=== PATIENT | male | born 1975 | race Caucasian/White ===

== ENCOUNTER 2020-03-18 13:42 | Outpatient (REF) | payer MEDICARE, MEDICAID, SELFPAY ==
[2020-03-18 14:38] LABS: C Reactive Protein 0.11 mg/dL (< or = 0.50); Rheumatoid Factor < 15.0 IU/mL (<15.0)
[2020-03-18 14:58] LABS: Erythrocyte Sedimentation Rate 2 MM/HR (0-15)
[2020-03-19 18:56] LABS: Lyme Abs Screen <0.90 index
[2020-03-22 10:42] LABS: Anti Nuclear Antibody Pattern Nuclear, Homogeneous; Anti Nuclear Antibody Screen POSITIVE (NEGATIVE); Anti Nuclear Antibody Titer 1:40 titer
== END 2020-03-18 13:43 | disposition home or self-care (01) ==
LOC: HO.LAB 13:42
PROVIDERS: PCP Family Medicine; Visit Provider Physician Assistant
DX: M25.50 Pain in unspecified joint (principal)
CPT/HCPCS: 36415; 85652; 86038; 86039; 86140; 86431; 86618

== ENCOUNTER 2020-03-31 14:30 | Outpatient (REF) | payer MEDICARE, MEDICAID, SELFPAY | END 2020-03-31 14:31 | disposition home or self-care (01) | LOC: HO.LAB 14:30 | PROVIDERS: Visit Provider Internal Medicine | DX: Z20.828 Contact with and (suspected) exposure to other viral communicable diseases (principal) | CPT/HCPCS: C9803; U0003 ==

== ENCOUNTER 2020-05-13 12:59 | Outpatient (REF) | payer MEDICARE, MEDICAID, SELFPAY ==
--- NOTE | 2020-05-13 | XR_ITS ---
EXAMINATION: XR KNEE, RIGHT CLINICAL INFORMATION: Multiple joint pain. Right knee pain. COMPARISON: Standing AP knees 01/13/2016 TECHNIQUE: Four views of the right knee. FINDINGS: No fracture, dislocation, or destructive process. No definite suprapatellar, or effusion. The Hoffa's fat pad appears normal. There is spurring at the quadriceps insertion patella. No lateralization or tilting. There is no joint narrowing or erosive change or chondrocalcinosis. XR/XR knee RT 4V IMPRESSION: 1. Spurring at quadriceps insertion patella. 2. Otherwise unremarkable right knee.
--- NOTE | 2020-05-13 13:09 | XR_ITS ---
EXAMINATION: XR LEFT KNEE XR BILATERAL ELBOWS XR BILATERAL HANDS AND WRISTS CLINICAL INFORMATION: Multiple joint pain. COMPARISON: None TECHNIQUE: 3 views each elbow, 4 views each hand and wrist. 4 views each knee. FINDINGS: RIGHT HAND/WRIST: There is no visible acute fracture or dislocation. The joint space is maintained normal. Intercarpal joint spaces preserved. The scaphoid bone is normal. The radioulnar carpal joint and alignment is normal. No loose bodies or soft tissue swelling seen. LEFT HAND/WRIST: There is no visible acute fracture, dislocation or subluxation. The scaphoid appears normal. The radioulnar intercarpal joint space is normal. The radiocarpal ulnar joint space and alignment is normal. RIGHT ELBOW: There is a small olecranon process spur. No visible acute fracture, dislocation or subluxation seen. The soft tissues are normal. The anterior elbow joint space is normal. The soft tissues are normal. LEFT ELBOW: There is a smaller olecranon process spur. No visible acute fracture, dislocation or subluxation seen. There is no joint effusion seen. The soft tissues are normal. LEFT KNEE: There is no visible acute fracture, dislocation or subluxation. No joint effusion or loose bodies seen. There is small anterosuperior patellar enthesophyte. XR/XR elbow LT min 3V IMPRESSION: Unremarkable bilateral wrist exam. Small bilateral olecranon process spurs but no visible acute fracture, dislocation or loose bodies seen in the elbow joint. Unremarkable left knee exam.
--- NOTE | 2020-05-13 13:09 | XR_ITS ---
EXAMINATION: XR LEFT KNEE XR BILATERAL ELBOWS XR BILATERAL HANDS AND WRISTS CLINICAL INFORMATION: Multiple joint pain. COMPARISON: None TECHNIQUE: 3 views each elbow, 4 views each hand and wrist. 4 views each knee. FINDINGS: RIGHT HAND/WRIST: There is no visible acute fracture or dislocation. The joint space is maintained normal. Intercarpal joint spaces preserved. The scaphoid bone is normal. The radioulnar carpal joint and alignment is normal. No loose bodies or soft tissue swelling seen. LEFT HAND/WRIST: There is no visible acute fracture, dislocation or subluxation. The scaphoid appears normal. The radioulnar intercarpal joint space is normal. The radiocarpal ulnar joint space and alignment is normal. RIGHT ELBOW: There is a small olecranon process spur. No visible acute fracture, dislocation or subluxation seen. The soft tissues are normal. The anterior elbow joint space is normal. The soft tissues are normal. LEFT ELBOW: There is a smaller olecranon process spur. No visible acute fracture, dislocation or subluxation seen. There is no joint effusion seen. The soft tissues are normal. LEFT KNEE: There is no visible acute fracture, dislocation or subluxation. No joint effusion or loose bodies seen. There is small anterosuperior patellar enthesophyte. XR/XR elbow RT min 3V IMPRESSION: Unremarkable bilateral wrist exam. Small bilateral olecranon process spurs but no visible acute fracture, dislocation or loose bodies seen in the elbow joint. Unremarkable left knee exam.
--- NOTE | 2020-05-13 13:10 | XR_ITS ---
EXAMINATION: XR LEFT KNEE XR BILATERAL ELBOWS XR BILATERAL HANDS AND WRISTS CLINICAL INFORMATION: Multiple joint pain. COMPARISON: None TECHNIQUE: 3 views each elbow, 4 views each hand and wrist. 4 views each knee. FINDINGS: RIGHT HAND/WRIST: There is no visible acute fracture or dislocation. The joint space is maintained normal. Intercarpal joint spaces preserved. The scaphoid bone is normal. The radioulnar carpal joint and alignment is normal. No loose bodies or soft tissue swelling seen. LEFT HAND/WRIST: There is no visible acute fracture, dislocation or subluxation. The scaphoid appears normal. The radioulnar intercarpal joint space is normal. The radiocarpal ulnar joint space and alignment is normal. RIGHT ELBOW: There is a small olecranon process spur. No visible acute fracture, dislocation or subluxation seen. The soft tissues are normal. The anterior elbow joint space is normal. The soft tissues are normal. LEFT ELBOW: There is a smaller olecranon process spur. No visible acute fracture, dislocation or subluxation seen. There is no joint effusion seen. The soft tissues are normal. LEFT KNEE: There is no visible acute fracture, dislocation or subluxation. No joint effusion or loose bodies seen. There is small anterosuperior patellar enthesophyte. XR/XR knee LT 4V IMPRESSION: Unremarkable bilateral wrist exam. Small bilateral olecranon process spurs but no visible acute fracture, dislocation or loose bodies seen in the elbow joint. Unremarkable left knee exam.
== END 2020-05-13 13:00 | disposition home or self-care (01) ==
LOC: HO.XRAY 12:59
PROVIDERS: PCP Family Medicine; Visit Provider Family Medicine
DX: M25.50 Pain in unspecified joint (principal)
CPT/HCPCS: 73080; 73110; 73564

== ENCOUNTER 2020-08-28 13:01 | Outpatient (REF) | payer MEDICARE, MEDICAID, SELFPAY ==
[2020-08-28 13:23] LABS: COVID-19 Test Negative (Negative)
== END 2020-08-28 13:02 | disposition home or self-care (01) ==
LOC: HO.LAB 13:01
PROVIDERS: Visit Provider Internal Medicine
DX: Z20.822 Contact with and (suspected) exposure to COVID-19 (principal)
CPT/HCPCS: 36415; 87635; C9803

== ENCOUNTER 2021-04-21 10:26 | Emergency (ER) | payer MEDICARE, MEDICAID, SELFPAY ==
--- NOTE | 2021-04-21 | ECG_ITS ---
Test Reason : CHEST PAIN Blood Pressure : / mmHG Vent. Rate : 096 BPM Atrial Rate : 096 BPM P-R Int : 150 ms QRS Dur : 110 ms QT Int : 350 ms P-R-T Axes : 040 040 016 degrees QTc Int : 442 ms Normal sinus rhythm Possible Inferior infarct (cited on or before 19-NOV-2019) Abnormal ECG When compared with ECG of 19-NOV-2019 03:01, No significant change was found Referred By: Generic ED Physician Electronically Signed By:Pako Arambula
--- NOTE | ~2021-04-21 | XR_ITS ---
EXAMINATION: XR CHEST CLINICAL INFORMATION: Chest pain. COMPARISON: Chest radiograph dated from 11/29/2011. TECHNIQUE: PA view of the chest was obtained. FINDINGS: Normal appearance of the cardiomediastinal silhouette. Clear lungs. No pleural effusions or pneumothorax. No acute osseous abnormalities. XR/XR chest 1V IMPRESSION: No acute cardiopulmonary findings.
[2021-04-21 12:03] VITALS: BP 153/109; PULSE 93; RESP 20; TEMP 37.3; O2SAT 98; BMI 30.5
[2021-04-21 12:36] LABS: MANUAL DIFF FLAG NO
[2021-04-21 12:43] LABS: Basophils Percent Auto 0.2 % (0-2); Hematocrit 45.5 % (42.0-52.0); Hemoglobin 15.6 g/dl (14.0-18.0); Imm Gran Abs Auto 0.02 X10*3/uL (0.00-0.03); Imm Gran Pct Auto 0.4 % (0.0-0.4); Lymphocytes Absolute Auto 0.8 X10*3/uL (1.2-4.9); Lymphocytes Percent Auto 15.1 % (20-40); Mean Corpuscular HGB Conc 34.3 g/dl (31.0-36.0); Mean Corpuscular Hemoglobin 30.2 pg (27.0-33.0); Mean Corpuscular Volume 88.2 fL (80.0-98.0); Mean Platelet Volume 10.3 fL (9.4-12.4); Monocytes Absolute Auto 0.6 X10*3/uL (0.1-1.2); Monocytes Percent Auto 10.4 % (2-11); Neutrophils Percent Auto 73.9 % (45-73); Platelet Count 218 X10*3/uL (160-400); Red Blood Count 5.16 X10*6/uL (4.60-5.80); White Blood Count 5.4 X10*3/uL (4.8-10.8)
[2021-04-21 12:48] LABS: Anion Gap 15 (12-20); Blood Urea Nitrogen 18 mg/dL (9-16); Calcium 9.6 mg/dL (8.4-10.2); Carbon Dioxide 26 mmol/L (22-29); Chloride 100 mmol/L (96-108); Creatinine Clr Calc Pharmacy 82.8; Estimated Glomerular Filt Rate > 60; Glucose Random 101 mg/dL (60-115); Potassium 4.3 mmol/L (3.3-5.1); Sodium 137 mmol/L (135-145)
[2021-04-21 12:59] LABS: Troponin-I High Sensitivity 5.7 ng/L (<3.5-35.0)
--- NOTE | 2021-04-21 16:16 | ED.CHESTPAIN ---
HPI - Chest Pain General Chief Complaint: Chest Pain Stated Complaint: chest pain dizzy Time Seen by Provider: 04/21/21 16:00 Source: patient Mode of arrival: ambulatory Limitations: no limitations History of Present Illness HPI narrative: 45-year-old male who presents emergency department for evaluation of viral-like illness x 3 days. The patient states that on Monday morning (3 days prior to evaluation) he woke up in the morning was not feeling well. He states that he had a headache which she describes as a constant, pressure-like pain in the frontal area of his head which is 7/10. He had nausea and vomited multiple times. He states he has not been able to hold down food or fluid over the past 3 days. He states he is feeling dizzy lightheaded and weak. The patient states that he has a sharp pain in his chest located in his anterior chest which is only present with breathing and with coughing. He has mild shortness of breath and no dyspnea on exertion. He states that he has a cough which is productive of green phlegm. He has had no fever but he has shaking chills and myalgias. He states he is having severe pain in his lower back. The patient is not vaccinated for COVID-19. 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 Past surgical history: Brain aneurysm coiling. Social history: The patient states he is a former smoker, he smoked 1 pack per day times 32 years but stopped 7 months prior. Denies alcohol use. He denies drug use. Medical History Aneurysm Surgical History S/P coil embolization of cerebral aneurysm Social History Social History Advance Directives: No Advance Directives Information Provided: No Physical Exam Vital Signs: Vital Signs: Last Vital Signs Temp 99.1 F 04/21/21 12:03 Pulse 78 04/21/21 17:00 Resp 18 04/21/21 17:00 BP 166/101 H 04/21/21 17:00 Pulse Ox 97 04/21/21 17:00 BMI result Body Mass Index 30.5 Const: General: cooperative and no acute distress Orientation/consciousness: oriented to person and oriented to place Limitations: no limitations HENMT: Head: Yes normal to inspection, Yes normocephalic and Yes atraumatic Ears: external ears normal General nose exam: Normal external nose present Face and sinus: Yes normal facial exam Mouth: Normal oral and palatal mucosa present Throat: Yes posterior oropharynx normal Eyes: General: appearance normal, both eyes and all related structures Pupils: Equal, round and reactive pupils present Neck: Neck: Yes normal visual inspection, Yes no lymphadenopathy, Yes trachea midline and Yes supple Chest: Chest palpation & inspection: normal inspection of the chest and normal palpation of entire chest wall Resp: Effort & Inspection: normal respiratory effort and able to speak in complete sentences Auscultation: clear to auscultation bilaterally Cardio: Rate: regular rate Rhythm: regular rhythm Heart sounds: S1 normal heart sound present, S2 normal heart sound present and no murmurs GI: Inspection: Yes normal to inspection Palpation (GI): Soft to palpation, nontender and no guarding Auscultation: normal bowel sounds : General: Yes no CVA tenderness Back/Spine/Pelvis: Back: no CVA tenderness Skin: General skin exam: no rashes or lesions noted Neuro: General: oriented to person and oriented to place Cranial nerves: Yes CN's II-XII intact bilaterally and Yes Equal, round and reactive pupils present Cognition (Neuro): normal cognition Motor exam (neuro): 5/5 motor strength present throughout Extrem: General: Yes normal to inspection Psych: Appearance: grossly normal Speech and movement: Normal speech and movement present Affect: normal affect Attitude: cooperative Thought process: Normal thought process present Thought content: Normal thought content present Course Course Course Narrative: 45-year-old male who presents emergency department for evaluation of 3 days of viral-like illness including a headache, pleuritic chest pain, cough, mild shortness of breath, nausea, vomiting, diarrhea and weakness. Initial vital signs revealed an elevated blood pressure of 153/109. Respiratory rate was 20 with an O2 saturation of 98 % on room air and temperature was 99.1? F. physical examination was unremarkable. Laboratory evaluation revealed a normal CBC. CMP revealed an elevated BUN of 18 with a normal creatinine of 1.2. Patient's high sensitivity troponin I was detectable at 5.7 but not elevated. Twelve EKG is consistent with an old inferior CT this is unchanged from previous EKGs. Chest x-ray revealed no significant infiltrates or pneumonia. I ordered a repeat troponin, normal saline IV x1 L and his headache and myalgias he will be treated with Toradol 15 mg IV, Reglan 10 mg IV and Benadryl 50 mg IV. 1837: The patient is feeling significantly better, his headache and myalgias have resolved. The patient's COVID-19 test was positive. The patient will be discharged home and advised to take Tylenol, ibuprofen, he was prescribed regular in as well. The patient will be referred to the [facility] COVID-19 monoclonal antibody clinic in [place]. MDM - Chest Pain Lab Data Result diagrams: 04/21/21 12:04/21/21 12: Labs: Lab Results 04/21/21 04/21/21 04/21/21 Range/Units 12: 12: 12: WBC 5.4 (4.8-10.8) X10*3/uL RBC 5.16 (4.60-5.80) X10*6/uL Hgb 15.6 (14.0-18.0) g/dl Hct 45.5 (42.0-52.0) % MCV 88.2 (80.0-98.0) fL MCH 30.2 (27.0-33.0) pg MCHC 34.3 (31.0-36.0) g/dl RDW 16.0 (11.0-16.0) % Plt Count 218 (160-400) X10*3/uL MPV 10.3 (9.4-12.4) fL Immature Gran % (Auto) 0.4 (0.0-0.4) % Neut % (Auto) 73.9 H (45-73) % Lymph % (Auto) 15.1 L (20-40) % Roosevelt % (Auto) 10.4 (2-11) % Eos % (Auto) 0.0 (0-4) % Baso % (Auto) 0.2 (0-2) % Lymph # (Auto) 0.8 L (1.2-4.9) X10*3/uL Roosevelt # (Auto) 0.6 (0.1-1.2) X10*3/uL Eos # (Auto) 0.0 (0.0-0.4) X10*3/uL Baso # (Auto) 0.0 (0.0-0.2) X10*3/uL Abs Immat Gran (auto) 0.02 (0.00-0.03) X10*3/uL Absolute Neuts (auto) 4.0 (2.0-8.3) x10*3/uL Absolute Nucleated RBC 0.000 (0.0-0.012) X10*3/uL Nucleated RBC % (auto) 0.0 (0.0-0.2) /100WBC Sodium 137 (135-145) mmol/L Potassium 4.3 (3.3-5.1) mmol/L Chloride 100 (96-108) mmol/L Carbon Dioxide 26 (22-29) mmol/L Anion Gap 15 (12-20) BUN 18 H (9-16) mg/dL Creatinine 1.17 (0.5-1.4) mg/dL Estim Creat Clear Calc 82.8 Estimated GFR > 60 Random Glucose 101 (60-115) mg/dL Calcium 9.6 (8.4-10.2) mg/dL Troponin I High Sens 5.7 (<3.5-35.0) ng/L COVID-19 (NINI) (Negative) COVID-19 Clin Com 04/21/21 04/21/21 Range/Units 16:31 16:31 WBC (4.8-10.8) X10*3/uL RBC (4.60-5.80) X10*6/uL Hgb (14.0-18.0) g/dl Hct (42.0-52.0) % MCV (80.0-98.0) fL MCH (27.0-33.0) pg MCHC (31.0-36.0) g/dl RDW (11.0-16.0) % Plt Count (160-400) X10*3/uL MPV (9.4-12.4) fL Immature Gran % (Auto) (0.0-0.4) % Neut % (Auto) (45-73) % Lymph % (Auto) (20-40) % Roosevelt % (Auto) (2-11) % Eos % (Auto) (0-4) % Baso % (Auto) (0-2) % Lymph # (Auto) (1.2-4.9) X10*3/uL Roosevelt # (Auto) (0.1-1.2) X10*3/uL Eos # (Auto) (0.0-0.4) X10*3/uL Baso # (Auto) (0.0-0.2) X10*3/uL Abs Immat Gran (auto) (0.00-0.03) X10*3/uL Absolute Neuts (auto) (2.0-8.3) x10*3/uL Absolute Nucleated RBC (0.0-0.012) X10*3/uL Nucleated RBC % (auto) (0.0-0.2) /100WBC Sodium (135-145) mmol/L Potassium (3.3-5.1) mmol/L Chloride (96-108) mmol/L Carbon Dioxide (22-29) mmol/L Anion Gap (12-20) BUN (9-16) mg/dL Creatinine (0.5-1.4) mg/dL Estim Creat Clear Calc Estimated GFR Random Glucose (60-115) mg/dL Calcium (8.4-10.2) mg/dL Troponin I High Sens 4.3 (<3.5-35.0) ng/L COVID-19 (NINI) Positive A (Negative) COVID-19 Clin Com See Note Discharge Plan Discharge Clinical Impression: COVID-19 virus infection, Acute dehydration Headache Qualifiers: Headache type: unspecified Headache chronicity pattern: acute headache Intractability: not intractable Qualified Code(s): R51.9 - Headache, unspecified Patient Disposition: Home, Self-Care Instructions: COVID-19 (Coronavirus Disease 2019) (ED) Additional Instructions: Your COVID-19 test was positive. Your symptoms are caused by the COVID-19 virus infection. At this time, your O2 saturation level was 99% which is good. We only hospitalized people when they developed COVID pneumonia and her O2 saturation is less than 90%. Please return to the emergency department if he develops symptoms of COVID pneumonia which include increased cough, chest pain with breathing and with coughing, shortness of breath, shortness of breath with minimal exertion (walking 10 ft). You need to stay home and isolate for 14 days. I think you would benefit from getting COVID-19 monoclonal antibodies therefore I have referred you to the [facility] infusion clinic in [place] I emailed the referral form to them, please call the number on the bottom of the form tomorrow morning to help facilitate getting an appointment as soon as possible to get the monoclonal antibodies. Take ibuprofen 200 mg pills, 3 pills every 6 hours as needed for pain. Take Tylenol (acetaminophen) 500 mg pills, 2 pills every 4 to 6 hours as needed for pain. For nausea, vomiting and headaches take Reglan (metoclopramide) 10 mg and Benadryl 50 mg every 6 hours. Please return to the emergency department if your symptoms get worse or if you develop any symptoms that are concerning to you. Prescriptions: New metoclopramide HCl [Reglan] 10 mg tablet 10 mg PO Q6H PRN (Reason: nausea and vomiting) Qty: 14 RF: 0
[2021-04-21] MEDS: 0.9 % Sodium Chloride 1,000 ML 999 ML IV (16:47)
[2021-04-21] MEDS: diphenhydrAMINE HCL 50 MG/ML VIAL IVPUSH (16:47)
[2021-04-21] MEDS: Ketorolac Tromethamine 30 MG/ML VIAL 15 MG IVPUSH (16:48)
[2021-04-21] MEDS: Metoclopramide HCl 10 MG/2 ML VIAL IVPUSH (16:49)
[2021-04-21 17:00] VITALS: BP 166/101; PULSE 78; RESP 18; O2SAT 97
[2021-04-21 17:01] LABS: COVID-19 Test Positive (Negative)
[2021-04-21 17:03] LABS: Troponin-I High Sensitivity 4.3 ng/L (<3.5-35.0)
== END 2021-04-21 19:04 | disposition home or self-care (01) ==
PROVIDERS: Emergency Provider Emergency Medicine Emergency Medical Services; PCP Family Medicine
DX: U07.1 COVID-19 (principal); E86.0 Dehydration; R51.9 Headache, unspecified
CPT/HCPCS: 36415; 71045; 80048; 84484; 85025; 87635; 93005; 96361; 96374; 96375; 99284; J1200; J1885; J2765

== ENCOUNTER 2022-05-18 06:56 | Inpatient (IN) | payer OTHER, MEDICAID, SELFPAY ==
--- NOTE | ~2022-05-18 | CT_ITS ---
EXAMINATION: CT HEAD WITHOUT CONTRAST CLINICAL INFORMATION: Confusion. COMPARISON: Brain MRI dated 01/31/2014. TECHNIQUE: Contiguous axial imaging was performed from the skullbase to vertex without intravenous administration of contrast. This CT examination was performed using dose optimization techniques as appropriate, variously including the following: *Automated exposure control *Adjustment of mA and/or kV according to patient size (this includes techniques or standardized protocols for targeted exams where dose is matched to indication/reason for exam; i.e. extremities or head) *Use of iterative reconstruction technique DLP: 772 mGy-cm. FINDINGS: There is no evidence of acute intracranial hemorrhage or territorial infarction. No abnormal mass effect or midline shift is seen. No extra-axial fluid collections are identified. There is encephalomalacia in the left frontoparietal lobes along the mid convexity which is presumably due to a chronic infarct. Coil embolization metallic artifact projects over the midline suprasellar cistern. The ventricles are normal in size. The osseous structures and soft tissues are normal. The mastoid air cells are well aerated. There is [id number] mucosal thickening in the ethmoid and sphenoid sinus cavities. CT/CT head/brain wo IV con IMPRESSION: No acute intracranial pathology. 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 [id number] mucosal thickening in the paranasal sinuses.
[2022-05-18 07:02] VITALS: BP 180/100; PULSE 120; O2SAT 96; BMI 29.0
--- NOTE | 2022-05-18 07:04 | ED.PSYCH ---
HPI - Psych General Chief Complaint: Psychiatric Symptoms Stated Complaint: Bad patch, couldn't hear EMS Time Seen by Provider: 05/18/22 07:02 Source: EMS Mode of arrival: EMS Limitations: altered mental status History of Present Illness HPI Narrative: Seeing bugs and is delusional complaint: hallucinations Onset (ago): week(s) Duration: constant Relieving factors: none Exacerbating factors: none Associated psychiatric symptoms: auditory hallucinations and visual hallucinations Related Data Home Medications Medication Instructions Recorded Confirmed quetiapine 50 mg tablet 1 tab PO BID 05/18/22 05/18/22 tramadol 50 mg tablet 1 tab PO TID 05/18/22 05/18/22 Allergies Allergy/AdvReac Type Severity Reaction Status Date / Time Iodinated Contrast Media Allergy Nausea and Verified 04/21/21 12:08 [Contrast Dye] Vomiting Review of Systems Review of Systems: Yes all other systems are reviewed and are negative Neurologic: Denies Sensory deficit (Neuro) Psychiatric: Psychiatric: Reports auditory hallucinations and Reports visual hallucinations PMF Past Medical History Medical History Aneurysm Surgical History S/P coil embolization of cerebral aneurysm Social History Social History Alcohol intake: unknown Smoked in Last 30 Days: Yes Use of substances other than those prescribed or required for medical reasons: Unknown Advance Directives: No Healthcare Proxy: No Guardian: No Physical Exam Vital Signs: Vital Signs: Last Vital Signs Temp 97.3 F 05/18/22 23:00 Pulse 69 05/18/22 23:00 Resp 16 05/18/22 23:00 BP 124/68 05/18/22 23:00 Pulse Ox 96 05/18/22 23:00 O2 Del Method 05/18/22 23:00 BMI result Body Mass Index 29.0 Const: Other: bizarre affect General: healthy appearing Nutritional Appearance: average body habitus Orientation/consciousness: oriented to person Limitations: no limitations HEENT: Head: Yes normal to inspection Ears: external ears normal General nose exam: Normal external nose present Mouth: Normal oral and palatal mucosa present and oropharynx normal Throat: Yes posterior oropharynx normal Eyes: General: appearance normal, both eyes and all related structures Neck: Other: supple Neck: Yes normal visual inspection Chest: Chest palpation & inspection: normal inspection of the chest Resp: Auscultation: clear to auscultation bilaterally Cardio: Jugular venous distension: no JVD Rate: regular rate Rhythm: regular rhythm Heart sounds: S1 normal heart sound present and S2 normal heart sound present GI: Inspection: Yes normal to inspection Palpation (GI): Soft to palpation, nontender and No hepatosplenomegaly present Auscultation: normal bowel sounds : General: Yes no CVA tenderness Back/Spine/Pelvis: Back: no CVA tenderness Skin: General skin exam: no rashes or lesions noted Neuro: General: oriented to person Cranial nerves: Yes CN's II-XII intact bilaterally Motor exam (neuro): 5/5 motor strength present throughout Sensory Exam: No Sensory deficit (Neuro) Extrem: General: Yes normal to inspection Psych: Other: bizarre affect Appearance: disheveled Course Reevaluation(s) Reevaluation #1: Patient was medically cleared for psych admission Time: 07:53 Medications Administered Discontinued Medications Generic Name Dose Route Start Last Admin Trade Name Uche PRN Reason Stop Dose Admin Acetaminophen 650 mg 05/18/22 17:55 05/18/22 18:12 Acetaminophen 325 Mg Tablet PO 05/18/22 17:56 650 mg ONCE ONE Administration Olanzapine 10 mg 05/18/22 07:20 05/18/22 07:25 Olanzapine 10 Mg Tablet PO 05/18/22 07:21 10 mg ONCE ONE Administration Quetiapine Fumarate 100 mg 05/18/22 07:20 05/18/22 07:25 Quetiapine Fumarate 100 Mg Tablet PO 05/18/22 07:21 100 mg ONCE ONE Administration Medical Decision Making Differential Diagnosis Psychosis, schizophrenia, polysubstance abuse Admission/Observation Based on the patients delusional thoughts about the devil and bugs psychiatric admission is considered Lab Data 05/18/22 08:12 05/18/22 08:12 Labs: Lab Results 05/18/22 05/18/22 05/18/22 Range/Units 07:31 07:31 08:12 WBC 4.3 L (4.8-10.8) X10*3/uL RBC 5.03 (4.60-5.80) X10*6/uL Hgb 16.4 (14.0-18.0) g/dl Hct 45.8 (42.0-52.0) % MCV 91.1 (80.0-98.0) fL MCH 32.6 (27.0-33.0) pg MCHC 35.8 (31.0-36.0) g/dl RDW 13.4 (11.0-16.0) % Plt Count 308 D (160-400) X10*3/uL MPV 9.5 (9.4-12.4) fL Immature Gran % (Auto) 0.2 (0.0-0.4) % Neut % (Auto) 47.7 (45-73) % Lymph % (Auto) 43.3 H (20-40) % [place] % (Auto) 8.1 (2-11) % Eos % (Auto) 0.5 (0-4) % Baso % (Auto) 0.2 (0-2) % Lymph # (Auto) 1.9 (1.2-4.9) X10*3/uL [place] # (Auto) 0.4 (0.1-1.2) X10*3/uL Eos # (Auto) 0.0 (0.0-0.4) X10*3/uL Baso # (Auto) 0.0 (0.0-0.2) X10*3/uL Abs Immat Gran (auto) 0.01 (0.00-0.03) X10*3/uL Absolute Neuts (auto) 2.1 (2.0-8.3) x10*3/uL Absolute Nucleated RBC 0.000 (0.0-0.012) X10*3/uL Nucleated RBC % (auto) 0.0 (0.0-0.2) /100WBC Smear Tech's Comments VERIFIED Sodium (135-145) mmol/L Potassium (3.3-5.1) mmol/L Chloride (96-108) mmol/L Carbon Dioxide (22-29) mmol/L Anion Gap (12-20) BUN (9-16) mg/dL Creatinine (0.5-1.4) mg/dL Estim Creat Clear Calc Estimated GFR Random Glucose (60-115) mg/dL Calcium (8.4-10.2) mg/dL Urine Color Yellow Urine Appearance Clear Urine pH 6.0 (5.0-9.0) Ur Specific [place] 1.010 (1.005-1.025) Urine Protein Negative (Neg-Trace) mg/dL Urine Glucose (UA) Negative (Negative) mg/dL Urine Ketones Negative (Negative) mg/dL Urine Blood Negative (Negative) Urine Nitrite Negative (Negative) Ur Leukocyte Esterase Trace H (Negative) Urine RBC 0-2 (0-2) /HPF Urine WBC 0-5 (0-5) /HPF Ur Squamous Epith Cells 0-2 (0-2) /HPF Urine Bacteria None Seen (None Seen) Hyaline Casts 0-2 (0-2) /LPF Urine Opiates Screen Not Detected (Not Detect) Urine Fentanyl Screen Not Detected (Not Detect) Ur Barbiturates Screen Not Detected (Not Detect) Ur Phencyclidine Scrn Not Detected (Not Detect) Ur Amphetamines Screen Not Detected (Not Detect) U Benzodiazepines Scrn Not Detected (Not Detect) Urine Cocaine Screen POSITIVE H (Not Detect) U Marijuana (THC) Screen Not Detected (Not Detect) Ethyl Alcohol mg/dL COVID-19 (NINI) (Negative) COVID-19 Clin Com 05/18/22 05/18/22 05/18/22 Range/Units 08:12 08:12 09:42 WBC (4.8-10.8) X10*3/uL RBC (4.60-5.80) X10*6/uL Hgb (14.0-18.0) g/dl Hct (42.0-52.0) % MCV (80.0-98.0) fL MCH (27.0-33.0) pg MCHC (31.0-36.0) g/dl RDW (11.0-16.0) % Plt Count (160-400) X10*3/uL MPV (9.4-12.4) fL Immature Gran % (Auto) (0.0-0.4) % Neut % (Auto) (45-73) % Lymph % (Auto) (20-40) % [place] % (Auto) (2-11) % Eos % (Auto) (0-4) % Baso % (Auto) (0-2) % Lymph # (Auto) (1.2-4.9) X10*3/uL [place] # (Auto) (0.1-1.2) X10*3/uL Eos # (Auto) (0.0-0.4) X10*3/uL Baso # (Auto) (0.0-0.2) X10*3/uL Abs Immat Gran (auto) (0.00-0.03) X10*3/uL Absolute Neuts (auto) (2.0-8.3) x10*3/uL Absolute Nucleated RBC (0.0-0.012) X10*3/uL Nucleated RBC % (auto) (0.0-0.2) /100WBC Smear Tech's Comments Sodium 142 (135-145) mmol/L Potassium 3.8 (3.3-5.1) mmol/L Chloride 108 (96-108) mmol/L Carbon Dioxide 23 (22-29) mmol/L Anion Gap 15 (12-20) BUN 10 (9-16) mg/dL Creatinine 1.04 (0.5-1.4) mg/dL Estim Creat Clear Calc 87.1 Estimated GFR > 60 Random Glucose 104 (60-115) mg/dL Calcium 9.1 (8.4-10.2) mg/dL Urine Color Urine Appearance Urine pH (5.0-9.0) Ur Specific [place] (1.005-1.025) Urine Protein (Neg-Trace) mg/dL Urine Glucose (UA) (Negative) mg/dL Urine Ketones (Negative) mg/dL Urine Blood (Negative) Urine Nitrite (Negative) Ur Leukocyte Esterase (Negative) Urine RBC (0-2) /HPF Urine WBC (0-5) /HPF Ur Squamous Epith Cells (0-2) /HPF Urine Bacteria (None Seen) Hyaline Casts (0-2) /LPF Urine Opiates Screen (Not Detect) Urine Fentanyl Screen (Not Detect) Ur Barbiturates Screen (Not Detect) Ur Phencyclidine Scrn (Not Detect) Ur Amphetamines Screen (Not Detect) U Benzodiazepines Scrn (Not Detect) Urine Cocaine Screen (Not Detect) U Marijuana (THC) Screen (Not Detect) Ethyl Alcohol 183 mg/dL COVID-19 (NINI) Negative (Negative) COVID-19 Clin Com See Note External Record Review records reviewed of [facility] that shows small L1 vertebrae compression fracture that is minimal back brace for comfort only. Discharge Plan Discharge Clinical Impression: Psychosis, Delusion, Polysubstance abuse Patient Disposition: Still a Patient Prescriptions: No Action tramadol 50 mg tablet 1 tab PO TID quetiapine 50 mg tablet 1 tab PO BID Interventions: [place]-Suicide Risk Severity Scale Last Done: 05/19/22 06:00
[2022-05-18 07:11] VITALS: BP 131/89; PULSE 101; RESP 18; TEMP 36.6; O2SAT 95
[2022-05-18] MEDS: QUEtiapine Fumarate 100 MG TABLET PO (07:25)
[2022-05-18] MEDS: OLANZapine 10 MG TABLET PO (07:25)
[2022-05-18 07:51] LABS: Appearance Urine Clear; Color Urine Yellow; Glucose Urine UA Negative (Negative); Leukocyte Esterase Urine Trace (Negative); Nitrite Urine Negative (Negative); UMIC TRIGGER UACC YES; Urine Blood Negative (Negative); Urine Ketones Negative (Negative); Urine Protein Negative (Neg-Trace)
--- NOTE | 2022-05-18 07:54 | PC.NURSE ---
+responding to internal stimuli. Seeing devil- refusing lab work until I get my fucking back brace.
[2022-05-18 07:57] LABS: Amphetamine Screen Urine Not Detected (Not Detect); Barbiturates, Urine Not Detected (Not Detect); Benzodiazepines Screen Urine Not Detected (Not Detect); Cannabinoid Screen Urine Not Detected (Not Detect); Cocaine Screen Urine POSITIVE (Not Detect); Fentanyl, urine Not Detected (Not Detect); Opiate Screen Urine Not Detected (Not Detect); Phencyclidine Screen Urine Not Detected (Not Detect)
[2022-05-18 08:00] VITALS: RESP 18
[2022-05-18 08:17] LABS: Bacteria Urine None Seen (None Seen); Hyaline Casts Urine 0-2 /LPF (0-2); RBC Urine 0-2 /HPF (0-2); Squamous Epithelial Cell Urine 0-2 /HPF (0-2); WBC Urine 0-5 /HPF (0-5)
[2022-05-18 08:18] LABS: Basophils Percent Auto 0.2 % (0-2); Eosinophils Percent Auto 0.5 % (0-4); Hematocrit 45.8 % (42.0-52.0); Hemoglobin 16.4 g/dl (14.0-18.0); Imm Gran Abs Auto 0.01 X10*3/uL (0.00-0.03); Imm Gran Pct Auto 0.2 % (0.0-0.4); Lymphocytes Absolute Auto 1.9 X10*3/uL (1.2-4.9); Lymphocytes Percent Auto 43.3 % (20-40); MANUAL DIFF FLAG SCAN; Mean Corpuscular Hemoglobin 32.6 pg (27.0-33.0); Mean Corpuscular Volume 91.1 fL (80.0-98.0); Mean Platelet Volume 9.5 fL (9.4-12.4); Monocytes Absolute Auto 0.4 X10*3/uL (0.1-1.2); Monocytes Percent Auto 8.1 % (2-11); Neutrophils Absolute Auto 2.1 x10*3/uL (2.0-8.3); Neutrophils Percent Auto 47.7 % (45-73); Platelet Count 308 X10*3/uL (160-400); Red Blood Count 5.03 X10*6/uL (4.60-5.80); Red Cell Distribution Width 13.4 % (11.0-16.0); SCAN SMEAR FLAG 1; White Blood Count 4.3 X10*3/uL (4.8-10.8)
[2022-05-18 08:23] LABS: Mean Corpuscular HGB Conc 35.8 g/dl (31.0-36.0)
[2022-05-18 08:33] LABS: Ethanol 183 mg/dL
[2022-05-18 08:34] LABS: Anion Gap 15 (12-20); Blood Urea Nitrogen 10 mg/dL (9-16); Calcium 9.1 mg/dL (8.4-10.2); Carbon Dioxide 23 mmol/L (22-29); Chloride 108 mmol/L (96-108); Creatinine Clr Calc Pharmacy 87.1; Estimated Glomerular Filt Rate > 60; Glucose Random 104 mg/dL (60-115); Potassium 3.8 mmol/L (3.3-5.1); Sodium 142 mmol/L (135-145)
[2022-05-18 08:43] LABS: SLIDE REVIEW VERIFIED
--- NOTE | 2022-05-18 08:47 | PC.NURSE ---
Per md: records from [facility] indicate that Back brace is for comfort rather than for structural bracing. Okay to withhold in BH pod until safety risk is established.
[2022-05-18 10:01] LABS: COVID-19 Test Negative (Negative); IDNOW Serial# 6674DD1D
--- NOTE | 2022-05-18 13:13 | PC.NURSE ---
Addendum entered by Naomie New 05/18/22 13:18: Eval attempted. Pt difficult to rouse secondary to medication administration earlier today. RR even and unlabored. Original Note: Care team at bedside
[2022-05-18 13:42] VITALS: BP 107/55; PULSE 73; RESP 18; TEMP 36.2; O2SAT 95
--- NOTE | 2022-05-18 14:05 | ECG_ITS ---
Test Reason : + cocaine Blood Pressure : / mmHG Vent. Rate : 075 BPM Atrial Rate : 075 BPM P-R Int : 166 ms QRS Dur : 114 ms QT Int : 388 ms P-R-T Axes : 045 062 018 degrees QTc Int : 433 ms Normal sinus rhythm Normal ECG When compared with ECG of 21-APR-2021 12:14, Borderline criteria for Inferior infarct are no longer Present Referred By: Bud Zeng Electronically Signed By:TREAN CLINTON
--- NOTE | 2022-05-18 16:05 | PC.NURSE ---
Per care team, plan is for pt to go inpatient on M3. Pt is currently sleeping, snoring, resp reg and even. NAD. VSS.
--- NOTE | 2022-05-18 17:21 | MHC.CARE ---
CARE Team attempted to meet with patient without success, information about his concerning presentation of medication noncompliance and hallucinations, erratic behavior gathered from girlfriend. Likely to require inpatient psychiatric admission but will need to have a clinician speak directly with patient to ensure this is the correct disposition. If he is unable to engage will seen in the morning.
--- NOTE | 2022-05-18 17:29 | MHC.CARE ---
Girlfriend called for update ond disposition, however he is sleeping and disposition plan could not be discussed. Girlfriend is requesting to be called for update and just started new job so is requesting call between 12-1 on her lunch or after 4:30 PM.
--- NOTE | 2022-05-18 17:47 | PC.NURSE ---
Pt awake at this time, walking with slightly unsteady gait, appears confused by his surroundings.
[2022-05-18] MEDS: Acetaminophen 325 MG TABLET 650 MG PO (18:12)
[2022-05-18 23:00] VITALS: BP 124/68; PULSE 69; RESP 16; TEMP 36.3; O2SAT 96
--- NOTE | 2022-05-19 06:15 | PC.NURSE ---
Patient slept evening through night, no distress observed/reported, asymptomatic of ETOH withdrawal, M3 admission was refused due to missing ED provider's HPI note, VSS, med rec completed/pending provider's approval, behavior non concerning, will continue to monitor,
[2022-05-19 11:32] VITALS: BP 139/93; PULSE 67; RESP 16; TEMP 36.4; O2SAT 98
[2022-05-19 11:45] VITALS: BP 143/86; PULSE 63; RESP 18; TEMP 36.7; O2SAT 99
[2022-05-19 12:01] VITALS: BMI 29.0
[2022-05-19] MEDS: Thiamine HCL 100 MG TABLET PO (16:21)
[2022-05-19] MEDS: LORazepam 1 MG TABLET PO ×2 (16:27→22:50)
--- NOTE | 2022-05-19 17:19 | PC.ADMIT ---
Nursing admission note: Patient 46 year old male DX: Unspecified schizophrenia and other psychotic d/o. Cocaine use disorder. Referred for treatment by CARE team. Signed conditional voluntary for admission. Patient presented to ED by ambulance following report by girlfriend patient was hallucinating, yelling about the devil, incoherent. Patient reported to be not taking medication, girlfriend felt he was out of control and unsafe. Patient engaged easily however responding to internal stimuli through out admission assessment. Patient oriented to person and month. Unable to state day or date, or what hospital. Reports he is here because of his girlfriend. Cooperative with admission process. Affect flat, good eye contact, dressed in hospital attire. Responds to questions, limited participation in admission assessment. Preoccupied, easily distracted. Endorses AH, denies CAH. Endorses VH states he sees bugs. Reports mood is anxious, denies depression, denies SI/HI at this time. Denies sleep or appetite disturbances. TOX screen + for cocaine, alcohol. Reports he has been drinking 1 pint ++ daily for unknown period of time. Denies alcohol withdrawal seizure. Denies withdrawal sx at this time. COVID negative. Allergy to Iodinated contrast media. Medical history includes back injury following fall from roof two months ago . Assessed at [facility], wears back brace for comfort, L1 vertebrae fracture. History of coil embolization of cerebral aneurysm. Patient oriented to unit, placed on CIWA protocol, unit safety checks. See nursing assessment, crisis evaluation for further details.
[2022-05-19] MEDS: Nicotine Polacrilex 2 MG GUM BUCCAL (18:42)
--- NOTE | 2022-05-19 18:58 | PC.NURSE ---
Patient reports he has received flu vaccine for this season.
[2022-05-19 22:45] VITALS: BP 142/86; PULSE 63; RESP 18; TEMP 36.4; O2SAT 97
[2022-05-19] MEDS: risperiDONE 1 MG TABLET PO (22:50)
[2022-05-20] VITALS (7 sets, daily range): BP systolic 130–161; BP diastolic 62–94; PULSE 60–99; RESP 18–20; TEMP 36.1–36.9; O2SAT 95–100
--- NOTE | 2022-05-20 00:45 | PC.NURSE ---
CIWA not done as pt is asleep, resting comfortably. Breathing is easy and unlabored.
[2022-05-20] MEDS: Thiamine HCL 100 MG TABLET PO (08:47)
[2022-05-20] MEDS: risperiDONE 1 MG TABLET PO (08:47)
[2022-05-20] MEDS: LORazepam 1 MG TABLET 2 MG PO ×2 (08:52→12:35)
[2022-05-20 08:57] LABS: Estimated Average Glucose 105 mg/dL; Hemoglobin A1c % 5.3 %
[2022-05-20 09:04] LABS: Alanine Aminotransferase 25 U/L (0-40); Albumin Level 3.7 g/dL (3.5-5.0); Alkaline Phosphatase 86 U/L (39-117); Anion Gap 11 (12-20); Aspartate Amino Transferase 22 U/L (5-37); Bilirubin Total 0.5 mg/dL (0.0-1.0); Blood Urea Nitrogen 20 mg/dL (9-16); Calcium 8.8 mg/dL (8.4-10.2); Carbon Dioxide 26 mmol/L (22-29); Chloride 108 mmol/L (96-108); Cholesterol 187 mg/dL; Creatinine Clr Calc Pharmacy 83.1; Estimated Glomerular Filt Rate > 60; Glucose Fasting 110 mg/dL (60-99); HDL Cholesterol 35 mg/dL; LDL Cholesterol Calculated 113 mg/dl; Potassium 4.3 mmol/L (3.3-5.1); Sodium 141 mmol/L (135-145); Triglycerides 199 mg/dL
[2022-05-20 09:20] LABS: Thyroid Stimulating Hormone 0.99 uIU/mL (0.32-4.0)
[2022-05-20 09:35] LABS: Folate 7.1 ng/mL (> or = 4.0); Vitamin B12 234 pg/mL (200-900)
--- NOTE | 2022-05-20 10:02 | HO.PSYADMNOT ---
HPI Date of Service: 05/20/22 Chief Complaint: SI Sources of Information: patient interviewed, chart reviewed and crisis/core team assessment reviewed Additional Sources of Information: GF Teetee. HPI Subjective Notes: Singh Warning and Conditional Voluntary Narrative: Mr. Guido is a 46 year-old male with hx of alcohol use disorder, ? schixophrenia (questionable based on description from GF) who was brought to [facility] ED due to pt presenting as confused, seeing bugs, hearing voices and talking to himself. IN the ED his utox was positive for cocaine. His BAL 183. Pt reported drinking about 1 pint of vodka daily which later was confirmed by his GF of 10 years who reports pt drinks alcohol almost daily since they have been together. On the unit, pt presented as confused. He reported initially he was not hearing voices or having hallucinations. He reported some memory changes which were unclear if due to stroke or current presentation of delirium. Pt was noted to have fluctuating levels of orientation. This morning he scored 19 on CIWA. He has been mostly in bed. He denies SI/HI. No overt agitation. No ocular movement abnormality nor gross ataxia noted. No overt agitation. Medical Evaluation Reviewed: Yes Head CT ordered to r/o acute pathology, which was negative. [facility] Medical History Aneurysm Surgical History S/P coil embolization of cerebral aneurysm Diagnostics Vital Signs (24Hr): Vital Signs - 24 hr 05/18/22 23:00 05/19/22 11:32 05/19/22 11:45 Temperature 97.3 F 97.6 F 98.0 F Pulse Rate 69 67 63 Respiratory Rate 16 16 18 Blood Pressure 124/68 139/93 H 143/86 H Pulse Oximetry 96 98 99 Oxygen Delivery Method Room Air Room Air Room Air BMI result Body Mass Index 29.0 Labs 05/18/22 08:12 05/18/22 08:12 Labs: Laboratory Results - last 48 hr 05/18/22 05/18/22 05/18/22 07:31 07:31 08:12 WBC 4.3 L RBC 5.03 Hgb 16.4 Hct 45.8 MCV 91.1 MCH 32.6 MCHC 35.8 RDW 13.4 Plt Count 308 D MPV 9.5 Immature Gran % (Auto) 0.2 Neut % (Auto) 47.7 Lymph % (Auto) 43.3 H [place] % (Auto) 8.1 Eos % (Auto) 0.5 Baso % (Auto) 0.2 Lymph # (Auto) 1.9 [place] # (Auto) 0.4 Eos # (Auto) 0.0 Baso # (Auto) 0.0 Abs Immat Gran (auto) 0.01 Absolute Neuts (auto) 2.1 Absolute Nucleated RBC 0.000 Nucleated RBC % (auto) 0.0 Smear Tech's Comments VERIFIED Sodium Potassium Chloride Carbon Dioxide Anion Gap BUN Creatinine Estim Creat Clear Calc Estimated GFR Random Glucose Calcium Urine Color Yellow Urine Appearance Clear Urine pH 6.0 Ur Specific [place] 1.010 Urine Protein Negative Urine Glucose (UA) Negative Urine Ketones Negative Urine Blood Negative Urine Nitrite Negative Ur Leukocyte Esterase Trace H Urine RBC 0-2 Urine WBC 0-5 Ur Squamous Epith Cells 0-2 Urine Bacteria None Seen Hyaline Casts 0-2 Urine Opiates Screen Not Detected Urine Fentanyl Screen Not Detected Ur Barbiturates Screen Not Detected Ur Phencyclidine Scrn Not Detected Ur Amphetamines Screen Not Detected U Benzodiazepines Scrn Not Detected Urine Cocaine Screen POSITIVE H U Marijuana (THC) Screen Not Detected Ethyl Alcohol COVID-19 (NINI) COVID-19 Clin Com 05/18/22 05/18/22 05/18/22 08:12 08:12 09:42 WBC RBC Hgb Hct MCV MCH MCHC RDW Plt Count MPV Immature Gran % (Auto) Neut % (Auto) Lymph % (Auto) [place] % (Auto) Eos % (Auto) Baso % (Auto) Lymph # (Auto) [place] # (Auto) Eos # (Auto) Baso # (Auto) Abs Immat Gran (auto) Absolute Neuts (auto) Absolute Nucleated RBC Nucleated RBC % (auto) Smear Tech's Comments Sodium 142 Potassium 3.8 Chloride 108 Carbon Dioxide 23 Anion Gap 15 BUN 10 Creatinine 1.04 Estim Creat Clear Calc 87.1 Estimated GFR > 60 Random Glucose 104 Calcium 9.1 Urine Color Urine Appearance Urine pH Ur Specific [place] Urine Protein Urine Glucose (UA) Urine Ketones Urine Blood Urine Nitrite Ur Leukocyte Esterase Urine RBC Urine WBC Ur Squamous Epith Cells Urine Bacteria Hyaline Casts Urine Opiates Screen Urine Fentanyl Screen Ur Barbiturates Screen Ur Phencyclidine Scrn Ur Amphetamines Screen U Benzodiazepines Scrn Urine Cocaine Screen U Marijuana (THC) Screen Ethyl Alcohol 183 COVID-19 (NINI) Negative COVID-19 Clin Com See Note Meds/Allergies Meds Home Medications Medication Instructions Recorded Confirmed Type quetiapine 50 mg tablet 1 tab PO BID 05/18/22 05/18/22 History tramadol 50 mg tablet 1 tab PO TID 05/18/22 05/18/22 History Allergies Allergies Allergy/AdvReac Type Severity Reaction Status Date / Time Iodinated Contrast Media Allergy Nausea and Verified 04/21/21 12:08 [Contrast Dye] Vomiting Mental Status Exam Mental Status Exam Narrative: Appearance: wearing hospital gown, fair hygiene, in NAD Behavior: cooperative, engagement limited by confusion Speech: mumbles at times, delayed response, spontaneous TP: derailment TC: seeing bugs, also reports seeing his friend Chemo Mood: good Affect: constricted, confused SI: denies HI: denies VH/AH: appears to see bugs, someone in the room, hearing voices of friend who is not there. Insight/judgment: impaired x 2 due to confusion Memory/cog: alert, orientation seems to fluctuate during the day, at times able to say that he is in hospital others not sure where he is or why he is here. Assessment & Plan Assessment & Plan (1) Alcohol withdrawal hallucinosis: Status: Acute Code(s): F10.932 - Alcohol use, unspecified with withdrawal with perceptual disturbance Plan Mr. Guido is a 46 year-old male with hx of alcohol use disorder who was brought in by GF of 10 years due to pt presenting as confused, seeing bugs, hearing voices, talking to self. GF confirms that he drinks about one pint of vodka daily or almost daily for past 10 years. She reports cocaine is not usual, but utox in ED was positive for cocaine. Pt presents with fluctuating levels of orientation, seeing bugs, reporting at times sensation of bugs crawling on skins. Initially started on ciwa with ativan tx but will switch to longer acting benzo as he continues to present with significant symptoms. Presentation discussed with hospitalist for possible transfer to medical floor for management of complicated alcohol withdrawal. However, given that CIWA score progressively going down, will continue to monitor with q2h. VS fairly stable, after 6-8 mg of ativan SBO less than 150, DBP less than 100. PLAN 1. admit to M3, CV, 15 minutes checks 2. give thiamine 100mg IM, continue oral. 3. continue ciwa, prn diazepam dosing. 4. aftercare planning. Patient educated on: diagnosis Reason for continued inpatient stay Substantial Risk for: inability to function Statement Statement: I have reviewed the history and physical and performed a pertinent examination on my patient. No changes have occurred unless specified. If the History and Physical was not performed prior to admission, the Hospitalist's service will be consulted for completing the admission physical. Time Spent With Patient Time: Total time managing care of this patient today ____ minutes.
[2022-05-20] MEDS: LORazepam 1 MG TABLET PO ×3 (10:21→15:06)
--- NOTE | 2022-05-20 10:51 | PC.NURSE ---
Late entry: 10:15 Arthur Diggs notified in team and after of patient CIWA. VS and symptoms. Patient initially appeared to be confused, oriented only to person, having VH of insects. Symptoms included in CIWA. Patient reassessed after, CIWA now 10. Patient remedicated per CIWA scale after discussing w/ provider.
[2022-05-20] MEDS: Gabapentin 300 MG CAPSULE PO ×3 (13:43→21:08)
[2022-05-20] MEDS: Folic Acid 1 MG TABLET PO (13:43)
--- NOTE | 2022-05-20 16:43 | PC.NURSE ---
Reviewed CIWA, Ativan given to this point, provider in to assess patient. Patient continues to report AH, seeing 'bugs' 'blue lights' and a man called 'Kraig. Patient continues to be oriented only to person and place.
[2022-05-20] MEDS: HaloperidoL 1 MG TABLET 2 MG PO ×2 (17:41→21:09)
--- NOTE | 2022-05-20 17:49 | PC.NURSE ---
Reviewed current vitals and DUNG w/ Arthur Diggs.
[2022-05-20] MEDS: diazePAM 5 MG TABLET 20 MG PO (17:58)
[2022-05-20] MEDS: Thiamine HCL 200 MG/2 ML VIAL 100 MG IM (17:58)
--- NOTE | 2022-05-20 18:50 | PC.NURSE ---
Patient ate dinner now resting in bed. Drowsy but awake. Appears more focused, relaxed, smiling. Resp unlabored.
[2022-05-20] MEDS: diazePAM 5 MG TABLET PO (21:08)
[2022-05-21] MEDS: hydrOXYzine HCL 25 MG TABLET PO (00:01)
[2022-05-21] MEDS: traZODone HCL 50 MG TABLET PO ×2 (00:01→01:09)
[2022-05-21 03:33] VITALS: BP 129/68; PULSE 92; O2SAT 97
[2022-05-21] MEDS: diazePAM 5 MG TABLET PO ×2 (03:37→20:03)
[2022-05-21 07:37] LABS: Alanine Aminotransferase 25 U/L (0-40); Albumin Level 3.7 g/dL (3.5-5.0); Alkaline Phosphatase 100 U/L (39-117); Anion Gap 9 (12-20); Aspartate Amino Transferase 23 U/L (5-37); Bilirubin Total 0.3 mg/dL (0.0-1.0); Blood Urea Nitrogen 14 mg/dL (9-16); Carbon Dioxide 25 mmol/L (22-29); Chloride 110 mmol/L (96-108); Creatinine Clr Calc Pharmacy 109.2; Estimated Glomerular Filt Rate > 60; Glucose Fasting 121 mg/dL (60-99); Sodium 140 mmol/L (135-145); Total Protein 5.9 g/dL (6.5-8.0)
[2022-05-21 08:35] VITALS: BP 135/89; PULSE 81; RESP 18; TEMP 36.7; O2SAT 97
[2022-05-21] MEDS: Folic Acid 1 MG TABLET PO (08:42)
[2022-05-21] MEDS: Thiamine HCL 100 MG TABLET PO (08:42)
[2022-05-21] MEDS: Gabapentin 300 MG CAPSULE PO ×3 (08:42→22:38)
[2022-05-21] MEDS: HaloperidoL 1 MG TABLET 2 MG PO ×3 (08:42→22:37)
[2022-05-21 12:00] VITALS: BP 128/58; PULSE 70; RESP 18; TEMP 36.2; O2SAT 98
--- NOTE | 2022-05-21 12:31 | HO.PSYCHPN ---
Subjective Subjective Date of Service: 05/21/22 Reason For Visit: SI Subjective Notes: Conditional Voluntary Interim History: The nursing staff reported that he is on CIWA q.4 and his last score was 2. He complained of racing thoughts denies auditory hallucinations but anxious, he has been seen by the staff very quiet. On interview the patient denies new symptoms he feels safe here in the facility and his anxiety is much better. He denies any psychotic symptoms at this moment. Mental Status Exam Mental Status Exam Patient Appearance: Appropriate Patient Orientation: Person and Situation Level of Consciousness: Awake and Appropriate Patient Behavior: Guarded and Passive Mood Description: Calm Affect Description: Constricted Ability to Follow Directions: Good Speech Pattern: Clear Hallucinations: None Delusions: Not Present Thought Process: Linear and Slowed Thinking Thought Content: positive for Circumstantial Judgement: Poor Diagnostics Vital Signs (24Hr): Vital Signs - 24 hr 05/20/22 14:58 05/20/22 17:48 05/20/22 21:02 Temperature 97 F Pulse Rate 99 87 82 Respiratory Rate 20 20 Blood Pressure 141/87 H 130/62 138/70 Pulse Oximetry 97 96 97 Oxygen Delivery Method Room Air Room Air Room Air 05/20/22 23:59 05/21/22 03:33 05/21/22 08:35 Temperature 98.0 F Pulse Rate 92 92 81 Respiratory Rate 18 Blood Pressure 161/91 H 129/68 135/89 Pulse Oximetry 95 97 97 Oxygen Delivery Method Room Air Room Air Room Air BMI result Body Mass Index 29.0 Labs 05/18/22 08:12 05/21/22 06:58 Labs: Laboratory Results - last 48 hr 05/20/22 05/20/22 05/20/22 08:32 08:32 08:32 Sodium 141 Potassium 4.3 Chloride 108 Carbon Dioxide 26 Anion Gap 11 L BUN 20 H Creatinine 1.09 Estim Creat Clear Calc 83.1 Estimated GFR > 60 Fasting Glucose 110 H Estimat Average Glucose 105 Hemoglobin A1c % 5.3 Calcium 8.8 Total Bilirubin 0.5 AST 22 ALT 25 Alkaline Phosphatase 86 Total Protein 6.0 L Albumin 3.7 Triglycerides 199 Cholesterol 187 LDL Cholesterol, Calc 113 HDL Cholesterol 35 Vitamin B12 234 Folate 7.1 TSH 0.99 05/21/22 06:58 Sodium 140 Potassium 4.0 Chloride 110 H Carbon Dioxide 25 Anion Gap 9 L BUN 14 Creatinine 0.83 Estim Creat Clear Calc 109.2 Estimated GFR > 60 Fasting Glucose 121 H Estimat Average Glucose Hemoglobin A1c % Calcium 9.0 Total Bilirubin 0.3 AST 23 ALT 25 Alkaline Phosphatase 100 Total Protein 5.9 L Albumin 3.7 Triglycerides Cholesterol LDL Cholesterol, Calc HDL Cholesterol Vitamin B12 Folate TSH Imaging Radiology Impressions: ITS Impressions Head CT 05/19/22 18:16 IMPRESSION: No acute intracranial pathology. 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 [id number] mucosal thickening in the paranasal sinuses. Medications Medications Current Medications Acetaminophen (Acetaminophen 325 Mg Tablet) 650 mg PO Q6H PRN PRN Reason: Headache/Pain Mild Scale (1-3) Al Hydroxide/Mg Hydroxide (Magnesium Hydrox/Alum Hydrox 30 Ml Oral.Susp) 30 ml PO Q6H PRN PRN Reason: Heartburn/Nausea Diazepam (Diazepam 5 Mg Tablet) 5 mg PO Q4H PRN PRN Reason: ciwa 8-11 Last Admin: 05/21/22 03:37 Dose: 5 mg Diazepam (Diazepam 5 Mg Tablet) 20 mg PO Q4H PRN PRN Reason: ciwa >19 Folic Acid (Folic Acid 1 Mg Tablet) 1 mg PO DAILY [facility] Last Admin: 05/21/22 08:42 Dose: 1 mg Gabapentin (Gabapentin 300 Mg Capsule) 300 mg PO TID [facility] Last Admin: 05/21/22 08:42 Dose: 300 mg Haloperidol (Haloperidol 1 Mg Tablet) 2 mg PO TID [facility] Last Admin: 05/21/22 08:42 Dose: 2 mg Hydroxyzine HCl (Hydroxyzine Hcl 25 Mg Tablet) 25 mg PO Q6H PRN PRN Reason: Anxiety Last Admin: 05/21/22 00:01 Dose: 25 mg Magnesium Hydroxide (Milk Of Magnesia 30 Ml Oral.Susp) 30 ml PO DAILY PRN PRN Reason: Constipation Nicotine Polacrilex (Nicotine Polacrilex 2 Mg Gum) 2 mg BUCCAL Q2H PRN PRN Reason: Nicotine Cravings Last Admin: 05/19/22 18:42 Dose: 2 mg Thiamine HCl (Thiamine Hcl 100 Mg Tablet) 100 mg PO DAILY [facility] Last Admin: 05/21/22 08:42 Dose: 100 mg Trazodone HCl (Trazodone Hcl 50 Mg Tablet) 50 mg PO BEDTIME PRN PRN Reason: Insomnia Last Admin: 05/21/22 01:09 Dose: 50 mg Allergies Allergies Allergy/AdvReac Type Severity Reaction Status Date / Time Iodinated Contrast Media Allergy Nausea and Verified 04/21/21 12:08 [Contrast Dye] Vomiting Assessment & Plan Assessment & Plan (1) Alcohol withdrawal hallucinosis: Status: Acute Code(s): F10.932 - Alcohol use, unspecified with withdrawal with perceptual disturbance Plan Mr. Guido is a 46 year-old male with hx of alcohol use disorder who was brought in by GF of 10 years due to pt presenting as confused, seeing bugs, hearing voices, talking to self. GF confirms that he drinks about one pint of vodka daily or almost daily for past 10 years. She reports cocaine is not usual, but utox in ED was positive for cocaine. Pt presents with fluctuating levels of orientation, seeing bugs, reporting at times sensation of bugs crawling on skins. Initially started on ciwa with ativan tx but will switch to longer acting benzo as he continues to present with significant symptoms. Presentation discussed with hospitalist for possible transfer to medical floor for management of complicated alcohol withdrawal. However, given that CIWA score progressively going down, will continue to monitor with q2h. VS fairly stable, after 6-8 mg of ativan SBO less than 150, DBP less than 100. PLAN 1. admit to M3, CV, 15 minutes checks 2. give thiamine 100mg IM, continue oral. 3. continue ciwa, prn diazepam dosing. 4. aftercare planning. Reason for contiued inpatient stay Substantial Risk for: inability to function, rapid decompensation and med/psych decompensation Time Spent With Patient Time: Total time managing care of this patient today __20__ minutes.
[2022-05-21 16:30] VITALS: BP 132/82; PULSE 75; RESP 18; TEMP 36.5; O2SAT 98
[2022-05-21 20:00] VITALS: BP 129/74; PULSE 80; TEMP 36.6; O2SAT 94
[2022-05-22] VITALS (7 sets, daily range): BP systolic 127–150; BP diastolic 73–93; PULSE 77–108; RESP 16–18; TEMP 36.2–36.7; O2SAT 97–98
[2022-05-22] MEDS: diazePAM 5 MG TABLET PO ×4 (00:39→23:27)
[2022-05-22] MEDS: hydrOXYzine HCL 25 MG TABLET PO ×2 (00:40→23:27)
[2022-05-22] MEDS: traZODone HCL 50 MG TABLET PO ×3 (00:40→23:27)
[2022-05-22] MEDS: Thiamine HCL 100 MG TABLET PO (08:51)
[2022-05-22] MEDS: Folic Acid 1 MG TABLET PO (08:51)
[2022-05-22] MEDS: Gabapentin 300 MG CAPSULE PO ×3 (08:51→21:00)
[2022-05-22] MEDS: HaloperidoL 1 MG TABLET 2 MG PO (08:51)
--- NOTE | 2022-05-22 12:11 | P.PNPSI_ITS ---
Subjective Subjective Date of Service: 05/22/22 Reason For Visit: SI Subjective Notes: Conditional Voluntary Interim History: The nursing staff reported the patient had been scoring on the CIWA on the long numbers. He had auditory and visual hallucinations and he received Valium twice. His blood pressure was slightly high. His girlfriend came and visited him and he reported visual hallucinations with Elias. Today in the morning his CIWA score 7. On interview the patient reports auditory and visual hallucinations. We discussed risks, benefits, side-effects and alternatives and he agreed to increase Haldol up to 3 mg p.o. t.i.d. a total of 9 mg a day to target psychosis. Mental Status Exam Mental Status Exam Patient Appearance: Appropriate Patient Orientation: Person and Situation Level of Consciousness: Awake and Appropriate Patient Behavior: Guarded and Passive Mood Description: Withdrawn Affect Description: Blunted Patient Cognition Impaired: No Ability to Follow Directions: Good Speech Pattern: Clear Hallucinations: Auditory and Visual Delusions: Not Present Thought Process: Distracted and Slowed Thinking Thought Content: positive for [place] and positive for Circumstantial Judgement: Fair Diagnostics Vital Signs (24Hr): Vital Signs - 24 hr 05/21/22 16:30 05/21/22 20:00 05/22/22 00:00 Temperature 97.7 F 97.8 F Pulse Rate 75 80 108 H Respiratory Rate 18 Blood Pressure 132/82 129/74 127/86 Pulse Oximetry 98 94 Oxygen Delivery Method Room Air Room Air 05/22/22 06:13 05/22/22 08:52 05/22/22 08:00 Temperature 97.8 F 98.0 F Pulse Rate 80 80 80 Respiratory Rate 18 18 Blood Pressure 150/90 H 137/93 H 137/93 H Pulse Oximetry 98 98 Oxygen Delivery Method Room Air Room Air BMI result Body Mass Index 29.0 Labs 05/18/22 08:12 05/21/22 06:58 Labs: Laboratory Results - last 48 hr 05/21/22 06:58 Sodium 140 Potassium 4.0 Chloride 110 H Carbon Dioxide 25 Anion Gap 9 L BUN 14 Creatinine 0.83 Estim Creat Clear Calc 109.2 Estimated GFR > 60 Fasting Glucose 121 H Calcium 9.0 Total Bilirubin 0.3 AST 23 ALT 25 Alkaline Phosphatase 100 Total Protein 5.9 L Albumin 3.7 Imaging Radiology Impressions: ITS Impressions Head CT 05/19/22 18:16 IMPRESSION: No acute intracranial pathology. 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 [id number] mucosal thickening in the paranasal sinuses. Medications Medications Current Medications Acetaminophen (Acetaminophen 325 Mg Tablet) 650 mg PO Q6H PRN PRN Reason: Headache/Pain Mild Scale (1-3) Al Hydroxide/Mg Hydroxide (Magnesium Hydrox/Alum Hydrox 30 Ml Oral.Susp) 30 ml PO Q6H PRN PRN Reason: Heartburn/Nausea Diazepam (Diazepam 5 Mg Tablet) 5 mg PO Q4H PRN PRN Reason: ciwa 8-11 Last Admin: 05/22/22 06:15 Dose: 5 mg Diazepam (Diazepam 5 Mg Tablet) 20 mg PO Q4H PRN PRN Reason: ciwa >19 Folic Acid (Folic Acid 1 Mg Tablet) 1 mg PO DAILY [facility] Last Admin: 05/22/22 08:51 Dose: 1 mg Gabapentin (Gabapentin 300 Mg Capsule) 300 mg PO TID [facility] Last Admin: 05/22/22 08:51 Dose: 300 mg Haloperidol (Haloperidol 1 Mg Tablet) 2 mg PO TID [facility] Last Admin: 05/22/22 08:51 Dose: 2 mg Hydroxyzine HCl (Hydroxyzine Hcl 25 Mg Tablet) 25 mg PO Q6H PRN PRN Reason: Anxiety Last Admin: 05/22/22 00:40 Dose: 25 mg Magnesium Hydroxide (Milk Of Magnesia 30 Ml Oral.Susp) 30 ml PO DAILY PRN PRN Reason: Constipation Nicotine Polacrilex (Nicotine Polacrilex 2 Mg Gum) 2 mg BUCCAL Q2H PRN PRN Reason: Nicotine Cravings Last Admin: 05/19/22 18:42 Dose: 2 mg Thiamine HCl (Thiamine Hcl 100 Mg Tablet) 100 mg PO DAILY [facility] Last Admin: 05/22/22 08:51 Dose: 100 mg Trazodone HCl (Trazodone Hcl 50 Mg Tablet) 50 mg PO BEDTIME PRN PRN Reason: Insomnia Last Admin: 05/22/22 00:40 Dose: 50 mg Allergies Allergies Allergy/AdvReac Type Severity Reaction Status Date / Time Iodinated Contrast Media Allergy Nausea and Verified 04/21/21 12:08 [Contrast Dye] Vomiting Assessment & Plan Assessment & Plan (1) Alcohol withdrawal hallucinosis: Status: Acute Code(s): F10.932 - Alcohol use, unspecified with withdrawal with perceptual disturbance Plan Mr. Lata is a 46 year-old male with hx of alcohol use disorder who was brought in by GF of 10 years due to pt presenting as confused, seeing bugs, hearing voices, talking to self. GF confirms that he drinks about one pint of vodka daily or almost daily for past 10 years. She reports cocaine is not usual, but utox in ED was positive for cocaine. Pt presents with fluctuating levels of orientation, seeing bugs, reporting at times sensation of bugs crawling on skins. Initially started on ciwa with ativan tx but will switch to longer acting benzo as he continues to present with significant symptoms. Presentation discussed with hospitalist for possible transfer to medical floor for management of complicated alcohol withdrawal. However, given that CIWA score progressively going down, will continue to monitor with q2h. VS fairly stable, after 6-8 mg of ativan SBO less than 150, DBP less than 100. PLAN 1. admit to M3, CV, 15 minutes checks 2. give thiamine 100mg IM, continue oral. 3. continue ciwa, prn diazepam dosing. 4. aftercare planning. 5. Increase Haldol up to 3 mg p.o. t.i.d. in May 22 to target auditory visual hallucinations Reason for contiued inpatient stay Substantial Risk for: inability to function, rapid decompensation and med/psych decompensation Time Spent With Patient Time: Total time managing care of this patient today __20__ minutes.
[2022-05-22] MEDS: HaloperidoL 1 MG TABLET 3 MG PO ×2 (15:41→21:00)
[2022-05-23 09:00] VITALS: BP 135/90; PULSE 92; RESP 18; O2SAT 97
[2022-05-23] MEDS: Acetaminophen 325 MG TABLET 650 MG PO (09:02)
[2022-05-23] MEDS: Gabapentin 300 MG CAPSULE PO ×3 (09:03→20:17)
[2022-05-23] MEDS: HaloperidoL 1 MG TABLET 3 MG PO ×3 (09:03→20:17)
[2022-05-23] MEDS: Folic Acid 1 MG TABLET PO (09:03)
[2022-05-23] MEDS: Thiamine HCL 100 MG TABLET PO (09:03)
[2022-05-23 12:00] VITALS: BP 130/83; PULSE 97; RESP 20; O2SAT 97
[2022-05-23] MEDS: Nicotine Polacrilex 2 MG GUM BUCCAL ×2 (12:18→20:17)
--- NOTE | 2022-05-23 12:41 | P.PNPSI_ITS ---
Subjective Subjective Date of Service: 05/23/22 Reason For Visit: SI Subjective Notes: Conditional Voluntary Interim History: Pt in bed most of the day. Pt denies seeing bugs. He denies VH/AH, appears somnolent. He denied SI/HI. He did not score this AM on his CIWA. Per nursing, pt in room, no behavioral concerns. VS stable. Medication Compliance: Yes Side effects from medications: No Review of Systems Review of Systems Yes all other systems are reviewed and are negative Denies Sensory deficit (Neuro) Psychiatric: Reports auditory hallucinations and Reports visual hallucinations Mental Status Exam Mental Status Exam Narrative: Appearance: wearing hospital gown, fair hygiene, in NAD Behavior: cooperative, engagement limited by confusion Speech: mumbles at times, delayed response, spontaneous TP: derailment TC: seeing bugs, also reports seeing his friend Chemo Mood: good Affect: constricted, confused SI: denies HI: denies VH/AH: appears to see bugs, someone in the room, hearing voices of friend who is not there. Insight/judgment: impaired x 2 due to confusion Memory/cog: alert, orientation seems to fluctuate during the day, at times able to say that he is in hospital others not sure where he is or why he is here. Diagnostics Vital Signs (24Hr): Vital Signs - 24 hr 05/23/22 12:00 05/23/22 16:00 05/23/22 19:45 Temperature 97.8 F Pulse Rate 97 102 H 88 Respiratory Rate 20 18 18 Blood Pressure 130/83 141/84 H 138/81 Pulse Oximetry 97 95 98 Oxygen Delivery Method Room Air Room Air Room Air BMI result Body Mass Index 29.0 Labs 05/18/22 08:12 05/21/22 06:58 Imaging Radiology Impressions: ITS Impressions Head CT 05/19/22 18:16 IMPRESSION: No acute intracranial pathology. 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 [id number] mucosal thickening in the paranasal sinuses. Medications Medications Current Medications Acetaminophen (Acetaminophen 325 Mg Tablet) 650 mg PO Q6H PRN PRN Reason: Headache/Pain Mild Scale (1-3) Last Admin: 05/24/22 08:54 Dose: 650 mg Al Hydroxide/Mg Hydroxide (Magnesium Hydrox/Alum Hydrox 30 Ml Oral.Susp) 30 ml PO Q6H PRN PRN Reason: Heartburn/Nausea Diazepam (Diazepam 5 Mg Tablet) 5 mg PO Q4H PRN PRN Reason: ciwa 8-11 Last Admin: 05/22/22 23:27 Dose: 5 mg Diazepam (Diazepam 5 Mg Tablet) 20 mg PO Q4H PRN PRN Reason: ciwa >19 Folic Acid (Folic Acid 1 Mg Tablet) 1 mg PO DAILY [facility] Last Admin: 05/24/22 08:53 Dose: 1 mg Gabapentin (Gabapentin 300 Mg Capsule) 300 mg PO TID [facility] Last Admin: 05/24/22 08:53 Dose: 300 mg Haloperidol (Haloperidol 1 Mg Tablet) 3 mg PO TID [facility] Last Admin: 05/24/22 08:54 Dose: 3 mg Hydroxyzine HCl (Hydroxyzine Hcl 25 Mg Tablet) 25 mg PO Q6H PRN PRN Reason: Anxiety Last Admin: 05/22/22 23:27 Dose: 25 mg Magnesium Hydroxide (Milk Of Magnesia 30 Ml Oral.Susp) 30 ml PO DAILY PRN PRN Reason: Constipation Nicotine Polacrilex (Nicotine Polacrilex 2 Mg Gum) 2 mg BUCCAL Q2H PRN PRN Reason: Nicotine Cravings Last Admin: 05/23/22 20:17 Dose: 2 mg Thiamine HCl (Thiamine Hcl 100 Mg Tablet) 100 mg PO DAILY [facility] Last Admin: 05/24/22 08:54 Dose: 100 mg Trazodone HCl (Trazodone Hcl 50 Mg Tablet) 50 mg PO BEDTIME PRN PRN Reason: Insomnia Last Admin: 05/23/22 20:17 Dose: 50 mg Allergies Allergies Allergy/AdvReac Type Severity Reaction Status Date / Time Iodinated Contrast Media Allergy Nausea and Verified 04/21/21 12:08 [Contrast Dye] Vomiting Assessment & Plan Assessment & Plan (1) Alcohol withdrawal hallucinosis: Status: Acute Code(s): F10.932 - Alcohol use, unspecified with withdrawal with perceptual disturbance Plan Mr. Guido is a 46 year-old male with hx of alcohol use disorder who was brought in by GF of 10 years due to pt presenting as confused, seeing bugs, hearing voices, talking to self. GF confirms that he drinks about one pint of vodka daily or almost daily for past 10 years. She reports cocaine is not usual, but utox in ED was positive for cocaine. Pt presents with fluctuating levels of orientation, seeing bugs, reporting at times sensation of bugs crawling on skins. Initially started on ciwa with ativan tx but will switch to longer acting benzo as he continues to present with significant symptoms. Presentation discussed with hospitalist for possible transfer to medical floor for management of complicated alcohol withdrawal. However, given that CIWA score progressively going down, will continue to monitor with q2h. VS fairly stable, after 6-8 mg of ativan SBO less than 150, DBP less than 100. PLAN 1. admit to M3, CV, 15 minutes checks 2. give thiamine 100mg IM, continue oral. 3. continue ciwa, prn diazepam dosing. 4. aftercare planning. 5. Increase Haldol up to 3 mg p.o. t.i.d. in May 22 to target auditory visual hallucinations 05/23 continue current medications. Patient educated on: diagnosis, medication risk/benefits and substance abuse Informed Consent: understands Reason for contiued inpatient stay Substantial Risk for: inability to function Time Spent With Patient Time: Total time managing care of this patient today ____ minutes.
[2022-05-23 16:00] VITALS: BP 141/84; PULSE 102; RESP 18; O2SAT 95
[2022-05-23 19:45] VITALS: BP 138/81; PULSE 88; RESP 18; TEMP 36.6; O2SAT 98
[2022-05-23] MEDS: traZODone HCL 50 MG TABLET PO (20:17)
[2022-05-24 08:45] VITALS: BP 138/93; PULSE 75; RESP 18; TEMP 36.6; O2SAT 98
[2022-05-24] MEDS: Gabapentin 300 MG CAPSULE PO ×3 (08:53→20:37)
[2022-05-24] MEDS: Folic Acid 1 MG TABLET PO (08:53)
[2022-05-24] MEDS: Acetaminophen 325 MG TABLET 650 MG PO ×2 (08:54→18:22)
[2022-05-24] MEDS: HaloperidoL 1 MG TABLET 3 MG PO ×3 (08:54→20:37)
[2022-05-24] MEDS: Thiamine HCL 100 MG TABLET PO (08:54)
--- NOTE | 2022-05-24 09:02 | P.PNPSI_ITS ---
Subjective Subjective Date of Service: 05/24/22 Reason For Visit: SI Subjective Notes: Conditional Voluntary Interim History: Pt up this morning. He reports he no longer seeing bugs or hearing things. He reports he feels much better. He denies SI/HI. he reports he slept better last night. He reports he wants referrals for OP. He also agrees to try naltrexon for alcohol cravings. Medication Compliance: Yes Side effects from medications: No Attending Groups: No Review of Systems Review of Systems Yes all other systems are reviewed and are negative Denies Sensory deficit (Neuro) Psychiatric: Reports auditory hallucinations and Reports visual hallucinations Mental Status Exam Mental Status Exam Narrative: Appearance: wearing hospital gown, fair hygiene, in NAD Behavior: cooperative, engagement limited by confusion Speech: clear, regular response, spontaneous TP: linear, more coherent TC: wanting to go home, Mood: good Affect: congruent. SI: denies HI: denies VH/AH: none Insight/judgment: improving x 2. Memory/cog: alert, oriented x 3. Diagnostics Vital Signs (24Hr): Vital Signs - 24 hr 05/24/22 12:00 05/24/22 20:42 05/25/22 06:00 Temperature 97.8 F Pulse Rate 80 82 87 Respiratory Rate 18 16 16 Blood Pressure 118/75 134/82 154/94 H Pulse Oximetry 97 98 98 Oxygen Delivery Method Room Air Room Air Room Air BMI result Body Mass Index 29.0 Labs 05/18/22 08:12 05/21/22 06:58 Imaging Radiology Impressions: ITS Impressions Head CT 05/19/22 18:16 IMPRESSION: No acute intracranial pathology. 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 [id number] mucosal thickening in the paranasal sinuses. Medications Medications Current Medications Acetaminophen (Acetaminophen 325 Mg Tablet) 650 mg PO Q6H PRN PRN Reason: Headache/Pain Mild Scale (1-3) Last Admin: 05/25/22 08:36 Dose: 650 mg Al Hydroxide/Mg Hydroxide (Magnesium Hydrox/Alum Hydrox 30 Ml Oral.Susp) 30 ml PO Q6H PRN PRN Reason: Heartburn/Nausea Diazepam (Diazepam 5 Mg Tablet) 5 mg PO Q4H PRN PRN Reason: ciwa 8-11 Last Admin: 05/22/22 23:27 Dose: 5 mg Diazepam (Diazepam 5 Mg Tablet) 20 mg PO Q4H PRN PRN Reason: ciwa >19 Folic Acid (Folic Acid 1 Mg Tablet) 1 mg PO DAILY [facility] Last Admin: 05/25/22 08:37 Dose: 1 mg Gabapentin (Gabapentin 300 Mg Capsule) 300 mg PO TID [facility] Last Admin: 05/25/22 08:36 Dose: 300 mg Haloperidol (Haloperidol 1 Mg Tablet) 3 mg PO TID [facility] Last Admin: 05/25/22 08:37 Dose: 3 mg Hydroxyzine HCl (Hydroxyzine Hcl 25 Mg Tablet) 25 mg PO Q6H PRN PRN Reason: Anxiety Last Admin: 05/24/22 20:37 Dose: 25 mg Magnesium Hydroxide (Milk Of Magnesia 30 Ml Oral.Susp) 30 ml PO DAILY PRN PRN Reason: Constipation Nicotine Polacrilex (Nicotine Polacrilex 2 Mg Gum) 2 mg BUCCAL Q2H PRN PRN Reason: Nicotine Cravings Last Admin: 05/23/22 20:17 Dose: 2 mg Thiamine HCl (Thiamine Hcl 100 Mg Tablet) 100 mg PO DAILY [facility] Last Admin: 05/25/22 08:36 Dose: 100 mg Trazodone HCl (Trazodone Hcl 50 Mg Tablet) 50 mg PO BEDTIME PRN PRN Reason: Insomnia Last Admin: 05/24/22 23:21 Dose: 50 mg Allergies Allergies Allergy/AdvReac Type Severity Reaction Status Date / Time Iodinated Contrast Media Allergy Nausea and Verified 04/21/21 12:08 [Contrast Dye] Vomiting Assessment & Plan Assessment & Plan (1) Alcohol withdrawal hallucinosis: Status: Acute Code(s): F10.932 - Alcohol use, unspecified with withdrawal with perceptual disturbance Plan Mr. Guido is a 46 year-old male with hx of alcohol use disorder who was brought in by GF of 10 years due to pt presenting as confused, seeing bugs, hearing voices, talking to self. GF confirms that he drinks about one pint of vodka daily or almost daily for past 10 years. She reports cocaine is not usual, but utox in ED was positive for cocaine. Pt presents with fluctuating levels of orientation, seeing bugs, reporting at times sensation of bugs crawling on skins. Initially started on ciwa with ativan tx but will switch to longer acting benzo as he continues to present with significant symptoms. Presentation discussed with hospitalist for possible transfer to medical floor for management of complicated alcohol withdrawal. However, given that CIWA score progressively going down, will continue to monitor with q2h. VS fairly stable, after 6-8 mg of ativan SBO less than 150, DBP less than 100. PLAN 1. admit to M3, CV, 15 minutes checks 2. give thiamine 100mg IM, continue oral. 3. continue ciwa, prn diazepam dosing. 4. aftercare planning. 5. Increase Haldol up to 3 mg p.o. t.i.d. in May 22 to target auditory visual hallucinations 05/23 continue current medications. 05/24 start naltrexon, d/c ciwa. Reason for contiued inpatient stay Substantial Risk for: inability to function Time Spent With Patient Time: Total time managing care of this patient today ____ minutes.
[2022-05-24 12:00] VITALS: BP 118/75; PULSE 80; RESP 18; O2SAT 97
[2022-05-24] MEDS: traZODone HCL 50 MG TABLET PO ×2 (20:37→23:21)
[2022-05-24] MEDS: hydrOXYzine HCL 25 MG TABLET PO (20:37)
[2022-05-24 20:42] VITALS: BP 134/82; PULSE 82; RESP 16; O2SAT 98
[2022-05-25 06:00] VITALS: BP 154/94; PULSE 87; RESP 16; TEMP 36.6; O2SAT 98
[2022-05-25] MEDS: Thiamine HCL 100 MG TABLET PO (08:36)
[2022-05-25] MEDS: Acetaminophen 325 MG TABLET 650 MG PO (08:36)
[2022-05-25] MEDS: Gabapentin 300 MG CAPSULE PO ×3 (08:36→21:52)
[2022-05-25] MEDS: Folic Acid 1 MG TABLET PO (08:37)
[2022-05-25] MEDS: HaloperidoL 1 MG TABLET 3 MG PO ×3 (08:37→21:52)
[2022-05-25] MEDS: Simethicone 80 MG TAB.CHEW PO ×3 (10:24→21:52)
[2022-05-25] MEDS: amLODIPine Besylate 5 MG TABLET PO (10:25)
[2022-05-25] MEDS: Naltrexone HCl 50 MG TABLET PO (10:25)
--- NOTE | 2022-05-25 12:25 | HO.PSYCHPN ---
Subjective Subjective Date of Service: 05/25/22 Reason For Visit: SI Subjective Notes: Conditional Voluntary Interim History: Pt presents much more clear, no signs of seeing bugs or other fluctuation in orientation due to alcohol withdrawal. He reports he is interested in referrals for OP psych. He started naltrexon today. No SI/HI. no behavioral concerns. stable for discharge Medication Compliance: Yes Side effects from medications: No Review of Systems Review of Systems Yes all other systems are reviewed and are negative Denies Sensory deficit (Neuro) Psychiatric: Reports auditory hallucinations and Reports visual hallucinations Mental Status Exam Mental Status Exam Narrative: Appearance: wearing hospital gown, fair hygiene, in NAD Behavior: cooperative, Speech: clear, regular response, spontaneous TP: linear, more coherent TC: wanting to go home, Mood: good Affect: congruent. SI: denies HI: denies VH/AH: none Insight/judgment: improving x 2. Memory/cog: alert, oriented x 3. Diagnostics Vital Signs (24Hr): Vital Signs - 24 hr 05/25/22 20:57 Temperature 97.4 F Pulse Rate 94 Respiratory Rate 16 Blood Pressure 127/83 Pulse Oximetry 96 Oxygen Delivery Method Room Air BMI result Body Mass Index 29.0 Labs 05/18/22 08:12 05/21/22 06:58 Imaging Radiology Impressions: ITS Impressions Head CT 05/19/22 18:16 IMPRESSION: No acute intracranial pathology. 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 [id number] mucosal thickening in the paranasal sinuses. Medications Medications Current Medications Acetaminophen (Acetaminophen 325 Mg Tablet) 650 mg PO Q6H PRN PRN Reason: Headache/Pain Mild Scale (1-3) Last Admin: 05/25/22 08:36 Dose: 650 mg Al Hydroxide/Mg Hydroxide (Magnesium Hydrox/Alum Hydrox 30 Ml Oral.Susp) 30 ml PO Q6H PRN PRN Reason: Heartburn/Nausea Amlodipine Besylate (Amlodipine Besylate 5 Mg Tablet) 5 mg PO DAILY [facility]; Protocol Last Admin: 05/26/22 08:50 Dose: 5 mg Folic Acid (Folic Acid 1 Mg Tablet) 1 mg PO DAILY [facility] Last Admin: 05/26/22 08:50 Dose: 1 mg Gabapentin (Gabapentin 300 Mg Capsule) 300 mg PO TID [facility] Last Admin: 05/26/22 08:49 Dose: 300 mg Haloperidol (Haloperidol 1 Mg Tablet) 3 mg PO TID [facility] Last Admin: 05/26/22 08:50 Dose: 3 mg Hydroxyzine HCl (Hydroxyzine Hcl 25 Mg Tablet) 25 mg PO Q6H PRN PRN Reason: Anxiety Last Admin: 05/25/22 21:54 Dose: 25 mg Ibuprofen (Ibuprofen 600 Mg Tablet) 600 mg PO Q8H PRN PRN Reason: Pain, Mild (Pain Scale 1-3) Last Admin: 05/25/22 18:20 Dose: 600 mg Ibuprofen (Ibuprofen 600 Mg Tablet) 600 mg PO TIDWM [facility] Stop: 05/26/22 23:20 Last Admin: 05/26/22 08:49 Dose: 600 mg Magnesium Hydroxide (Milk Of Magnesia 30 Ml Oral.Susp) 30 ml PO DAILY PRN PRN Reason: Constipation Naltrexone HCl (Naltrexone Hcl 50 Mg Tablet) 50 mg PO DAILY [facility] Last Admin: 05/26/22 08:50 Dose: 50 mg Nicotine Polacrilex (Nicotine Polacrilex 2 Mg Gum) 2 mg BUCCAL Q2H PRN PRN Reason: Nicotine Cravings Last Admin: 05/23/22 20:17 Dose: 2 mg Simethicone (Simethicone 80 Mg Tab.Chew) 80 mg PO TID [facility] Last Admin: 05/26/22 08:50 Dose: 80 mg Thiamine HCl (Thiamine Hcl 100 Mg Tablet) 100 mg PO DAILY [facility] Last Admin: 05/26/22 08:50 Dose: 100 mg Trazodone HCl (Trazodone Hcl 50 Mg Tablet) 50 mg PO BEDTIME PRN PRN Reason: Insomnia Last Admin: 05/26/22 00:23 Dose: 50 mg Allergies Allergies Allergy/AdvReac Type Severity Reaction Status Date / Time Iodinated Contrast Media Allergy Nausea and Verified 04/21/21 12:08 [Contrast Dye] Vomiting Assessment & Plan Assessment & Plan (1) Alcohol withdrawal hallucinosis: Status: Acute Code(s): F10.932 - Alcohol use, unspecified with withdrawal with perceptual disturbance Plan Mr. Guido is a 46 year-old male with hx of alcohol use disorder who was brought in by GF of 10 years due to pt presenting as confused, seeing bugs, hearing voices, talking to self. GF confirms that he drinks about one pint of vodka daily or almost daily for past 10 years. She reports cocaine is not usual, but utox in ED was positive for cocaine. Pt presents with fluctuating levels of orientation, seeing bugs, reporting at times sensation of bugs crawling on skins. Initially started on ciwa with ativan tx but will switch to longer acting benzo as he continues to present with significant symptoms. Presentation discussed with hospitalist for possible transfer to medical floor for management of complicated alcohol withdrawal. However, given that CIWA score progressively going down, will continue to monitor with q2h. VS fairly stable, after 6-8 mg of ativan SBO less than 150, DBP less than 100. PLAN 1. admit to M3, CV, 15 minutes checks 2. give thiamine 100mg IM, continue oral. 3. continue ciwa, prn diazepam dosing. 4. aftercare planning. 5. Increase Haldol up to 3 mg p.o. t.i.d. in May 22 to target auditory visual hallucinations 05/23 continue current medications. 05/24 start naltrexon, d/c ciwa. 05/25 continue tx. d/c tomorrow. Reason for contiued inpatient stay Substantial Risk for: stable for discharge Time Spent With Patient Time: Total time managing care of this patient today ____ minutes.
[2022-05-25] MEDS: Ibuprofen 600 MG TABLET PO (18:20)
[2022-05-25 20:57] VITALS: BP 127/83; PULSE 94; RESP 16; TEMP 36.3; O2SAT 96
[2022-05-25] MEDS: hydrOXYzine HCL 25 MG TABLET PO (21:54)
[2022-05-25] MEDS: traZODone HCL 50 MG TABLET PO (21:54)
[2022-05-26] MEDS: traZODone HCL 50 MG TABLET PO (00:23)
[2022-05-26 08:45] VITALS: BP 127/84; PULSE 83; RESP 18; TEMP 36.8; O2SAT 98
[2022-05-26] MEDS: Gabapentin 300 MG CAPSULE PO (08:49)
[2022-05-26] MEDS: Ibuprofen 600 MG TABLET PO (08:49)
[2022-05-26] MEDS: Simethicone 80 MG TAB.CHEW PO (08:50)
[2022-05-26] MEDS: amLODIPine Besylate 5 MG TABLET PO (08:50)
[2022-05-26] MEDS: Naltrexone HCl 50 MG TABLET PO (08:50)
[2022-05-26] MEDS: Folic Acid 1 MG TABLET PO (08:50)
[2022-05-26] MEDS: HaloperidoL 1 MG TABLET 3 MG PO (08:50)
[2022-05-26] MEDS: Thiamine HCL 100 MG TABLET PO (08:50)
--- NOTE | 2022-05-26 09:02 | P.DS_ITS ---
DS: Providers Provider Date of Service: 05/26/22 Date of admission: 05/19/22 10:32 Primary care physician: Unknown Physician DS: Diagnosis Discharge Diagnosis (1) Alcohol withdrawal hallucinosis: Status: Acute DS: Medications Discharge Medications Home Medications: Home Medications Medication Instructions Recorded Confirmed quetiapine 50 mg tablet 1 tab PO BID 05/18/22 05/18/22 tramadol 50 mg tablet 1 tab PO TID 05/18/22 05/18/22 Mental Status Exam Mental Status Exam Narrative: Appearance: wearing hospital gown, fair hygiene, in NAD Behavior: cooperative, Speech: clear, regular response, spontaneous TP: linear, more coherent TC: wanting to go home, Mood: good Affect: congruent. SI: denies HI: denies VH/AH: none Insight/judgment: improving x 2. Memory/cog: alert, oriented x 3. Data Data Completed and Pending Completed studies during hospitalization [Text1]: 05/20/22 05/20/22 05/20/22 08:32 08:32 08:32 Sodium 141 Potassium 4.3 Chloride 108 Carbon Dioxide 26 Anion Gap 11 L BUN 20 H Creatinine 1.09 Estim Creat Clear Calc 83.1 Estimated GFR > 60 Fasting Glucose 110 H Estimat Average Glucose 105 Hemoglobin A1c % 5.3 Calcium 8.8 Total Bilirubin 0.5 AST 22 ALT 25 Alkaline Phosphatase 86 Total Protein 6.0 L Albumin 3.7 Triglycerides 199 Cholesterol 187 LDL Cholesterol, Calc 113 HDL Cholesterol 35 Vitamin B12 234 Folate 7.1 TSH 0.99 05/21/22 06:58 Sodium 140 Potassium 4.0 Chloride 110 H Carbon Dioxide 25 Anion Gap 9 L BUN 14 Creatinine 0.83 Estim Creat Clear Calc 109.2 Estimated GFR > 60 Fasting Glucose 121 H Estimat Average Glucose Hemoglobin A1c % Calcium 9.0 Total Bilirubin 0.3 AST 23 ALT 25 Alkaline Phosphatase 100 Total Protein 5.9 L Albumin 3.7 Triglycerides Cholesterol LDL Cholesterol, Calc HDL Cholesterol Vitamin B12 Folate TSH Imaging Diagnostic Imaging Impressions Head CT 05/19/22 18:16 IMPRESSION: No acute intracranial pathology. 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 [id number] mucosal thickening in the paranasal sinuses. DS: Summary Hospital Course Hospital Course: Mr. Guido is a 46 year-old male with hx of alcohol use disorder, ? schixophrenia (questionable based on description from GF) who was brought to [facility] ED due to pt presenting as confused, seeing bugs, hearing voices and talking to himself. IN the ED his utox was positive for cocaine. His BAL 183. Pt reported drinking about 1 pint of vodka daily which later was confirmed by his GF of 10 years who reports pt drinks alcohol almost daily since they have been together. On the unit, pt presented as confused. He reported initially he was not hearing voices or having hallucinations. He reported some memory changes which were unclear if due to stroke or current presentation of delirium. Pt was noted to have fluctuating levels of orientation. This morning he scored 19 on CIWA. He has been mostly in bed. He denies SI/HI. No overt agitation. No ocular movement abnormality nor gross ataxia noted. No overt agitation. Medical Evaluation Reviewed: Yes Head CT ordered to r/o acute pathology, which was negative. HOSPITAL COURSE On the unit, pt presented with primarily alcohol withdrawal symptoms including tactile hallucinations of bugs crawling on his skin, seeing bugs on the wall, fluctuation in orientation, sweating. Pt was started on CIWA and PRN doses of diazepam. However, if pt represents in the future he would benefit from phenobarbital protocol instead. He was started on risperidone but this was switch to low dose haldol. His alcohol withdrawal symptoms resolved after 3-4 days. Collateral information from GF of past 10 years described hx of schizophrenia but her description was consistent with alcohol withdrawal as it includes seeing bugs, tactile hallucinations of seeing bugs and confusion. At least for the short period of time while he was here on the unit, there was not evidence of underlying psychiatric illness but this is not to say that is ruled out. This admission his presentation was solemnly related to alcohol withdrawal. He was started on naltrexon for alcohol cravings. He agrees to follow up with OP providers. Time spent discussing smoking cessation with patient: 3 to 10 minutes Status at Discharge Cognitive/behavioral status at discharge: Pt with bright, non labile, No SI/HI/VH/AH. He is oriented x 3. Sleeping and eating well. No signs of aggression towards self or others. Functional status at discharge: independent ambulation Overall status at discharge: patient is progressing back to baseline Time Spent with Patient Time attestation: Total time managing care of this patient today __20__ minutes. Time spent: Greater than 30 minutes Discharge Plan Discharge Anticipated Discharge Date/Time: 05/26/22 09:02 Patient Disposition: Home, Self-Care Discharge Diagnosis: Alcohol Use disorder Referrals: [facility] [Other] - 07/25/22 3:00 pm (Medication Management- Azul Patel- TELEHEALTH) [facility] [Provider Group] - 1 Week [facility] [Provider Group] - 06/02/22 9:00 am (Assessment- Cherelle Kate IN PERSON(OFFICE)) [facility] [Outside] - 06/23/22 11:00 am (Psychiatric Evaluation(Med Provider) Azul Patel- TELEHEALTH) Discharge Medications: New amlodipine 5 mg Tablet 5 mg PO DAILY Qty: 30 0RF Protocol: Hold for SBP< HOLD for SBP < : 90 gabapentin 300 mg Capsule 300 mg PO TID Qty: 90 0RF haloperidol 2 mg tablet 2 mg PO TID Qty: 90 0RF trazodone 50 mg Tablet 50 mg PO BEDTIME PRN (Reason: Insomnia) Qty: 30 0RF naltrexone 50 mg Tablet 50 mg PO DAILY Qty: 30 0RF folic acid 1 mg Tablet 1 mg PO DAILY Qty: 30 0RF simethicone [Gas Relief (simethicone)] 80 mg Tablet,Chewable 80 mg PO TID PRN (Reason: Abdominal Discomfort) Qty: 90 0RF thiamine mononitrate (vit B1) 100 mg Tablet 100 mg PO DAILY Qty: 30 0RF Discontinued tramadol 50 mg tablet 1 tab PO TID quetiapine 50 mg tablet 1 tab PO BID Discharge Orders: Discharge Order (Routine); Ordered 05/26/22 Ordered By: Carline Diggs Diet: Regular diet Activity on Discharge: As tolerated Stand Alone Forms: Patient Portal Discharge page Care Plan Goals: 1. Maintain mood 2. No SI/HI 3. No psychosis 4. no aggression towards self or others Health Concerns: Follow up with PCP Plan of Treatment: 1. Take medications as prescribed 2. Go to nearest ED or call 911 in event of emergency Assessment: Pt with bright, non labile affect. No SI/HI/ No VH/AH. Future oriented, sleeping and eating well. No signs of aggression towards self or others.
--- NOTE | 2022-05-26 10:39 | PC.NURSE ---
Zack is alert, fully oriented and cooperative with discharge process. He denies ideation, plan or intent to harm self or others. He verbalizes plan to continue meds and attend outpt appointments. He denies acute physical complaint
== END 2022-05-26 10:40 | disposition home or self-care (01) | DRG 775 ==
LOC: HO.ED 05-19 07:54 → HO.PADLT16 05-19 10:38
PROVIDERS: Admitting Provider Social Worker; Emergency Provider Emergency Medicine; Visit Provider Social Worker
DX: F10.132 Alcohol abuse with withdrawal with perceptual disturbance (principal); R45.851 Suicidal ideations; F17.210 Nicotine dependence, cigarettes, uncomplicated; Z20.822 Contact with and (suspected) exposure to COVID-19; Y90.6 Blood alcohol level of 120-199 mg/100 ml; Z71.6 Tobacco abuse counseling; Z91.041 Radiographic dye allergy status; Z79.899 Other long term (current) drug therapy
CPT/HCPCS: 36415; 70450; 80048; 80053; 80061; 80307; 81001; 82077; 82607; 82746; 83036; 84443; 85025; 87635; 93005; 99285; J3411; S9485

== ENCOUNTER 2023-11-07 10:00 | Outpatient (REF) | payer MEDICARE, MEDICAID, SELFPAY ==
[2023-11-07 11:32] LABS: MANUAL DIFF FLAG NO
[2023-11-07 11:38] LABS: Basophils Percent Auto 0.4 % (0-2); Eosinophils Absolute Auto 0.1 X10*3/uL (0.0-0.4); Eosinophils Percent Auto 1.1 % (0-4); Hematocrit 40.7 % (42.0-52.0); Hemoglobin 13.7 g/dl (14.0-18.0); Imm Gran Abs Auto 0.06 X10*3/uL (0.00-0.03); Imm Gran Pct Auto 1.1 % (0.0-0.4); Lymphocytes Absolute Auto 1.1 X10*3/uL (1.2-4.9); Lymphocytes Percent Auto 19.4 % (20-40); Mean Corpuscular HGB Conc 33.7 g/dl (31.0-36.0); Mean Corpuscular Volume 86.2 fL (80.0-98.0); Mean Platelet Volume 10.8 fL (9.4-12.4); Monocytes Absolute Auto 0.4 X10*3/uL (0.1-1.2); Monocytes Percent Auto 6.2 % (2-11); Neutrophils Absolute Auto 4.1 x10*3/uL (2.0-8.3); Neutrophils Percent Auto 71.8 % (45-73); Platelet Count 281 X10*3/uL (160-400); Red Blood Count 4.72 X10*6/uL (4.60-5.80); Red Cell Distribution Width 14.8 % (11.0-16.0); White Blood Count 5.7 X10*3/uL (4.8-10.8)
[2023-11-07 11:54] LABS: Alanine Aminotransferase 31 U/L (0-40); Albumin Level 4.9 g/dL (3.5-5.0); Alkaline Phosphatase 119 U/L (39-117); Anion Gap 14 (12-20); Aspartate Amino Transferase 22 U/L (5-37); Bilirubin Direct 0.1 mg/dL (0.0-0.5); Bilirubin Total 0.4 mg/dL (0.0-1.0); Blood Urea Nitrogen 12 mg/dL (9-16); Carbon Dioxide 26 mmol/L (22-29); Chloride 106 mmol/L (96-108); Estimated Glomerular Filt Rate > 60; Glucose Random 120 mg/dL (60-115); Potassium 3.7 mmol/L (3.3-5.1); Sodium 142 mmol/L (135-145)
[2023-11-08 04:06] LABS: Hepatitis A Antibody IgG REACTIVE (Nonreactive); ~Hepatitis A Antibody IgG 11.68 S/CO (0.00-0.99)
[2023-11-08 04:12] LABS: HBS Num1 1.65 mIU/mL (0-7.99); HBc Num1 0.11 S/CO (0.00-0.79); HIV AB/AG Nonreactive (Nonreactive); HIV Num 1 0.04 S/CO (0.00-0.99); Hepatitis B Core Antibody Nonreactive (Nonreactive); Hepatitis B Surface Antigen Negative (Negative); ~HepC Num1 0.21 S/CO (0.00-0.79); ~Hepatitis B Surface Antibody NONREACTIVE (Nonreactive); ~Hepatitis C Antibody Nonreactive (Nonreactive)
[2023-11-09 07:09] LABS: RPR Rapid Plasma Reagin NON-REACTIVE (NON-REACTIVE)
[2023-11-10 06:09] LABS: TS Negative Control Passed; TS Panel A 0; TS Panel B 0; TS Positive Control Passed; TSpotTB Negative (Negative)
== END 2023-11-07 10:01 | disposition home or self-care (01) ==
LOC: HO.HHCL 10:00
PROVIDERS: Visit Provider Emergency Medicine
DX: F11.20 Opioid dependence, uncomplicated (principal)
CPT/HCPCS: 36415; 80048; 80076; 85025; 86481; 86592; 86704; 86706; 86708; 86803; 87340; 87389

== ENCOUNTER 2024-03-08 12:32 | Outpatient (REF) | payer MEDICARE, MEDICAID, SELFPAY ==
[2024-03-08 14:55] LABS: TSH reflex Free T4 0.71 uIU/mL (0.32-4.0)
[2024-03-15 15:39] LABS: Testosterone, Total 325 ng/dL (250-1100)
== END 2024-03-08 12:33 | disposition home or self-care (01) ==
LOC: HO.CHCLDS 12:32
PROVIDERS: Visit Provider Internal Medicine
DX: N52.9 Male erectile dysfunction, unspecified (principal)
CPT/HCPCS: 36415; 84403; 84443

== ENCOUNTER 2024-03-20 11:30 | Outpatient (REF) | payer MEDICAID, SELFPAY ==
[2024-03-20 13:37] LABS: Cholesterol 241 mg/dL (<200); HDL Cholesterol 23 mg/dL (>40); LDL Cholesterol Calculated 188 mg/dL (<100); Triglycerides 150 mg/dL (<150)
[2024-03-21 07:09] LABS: Follicle Stimulating Hormone 3.5 mIU/mL (1.4-12.8); Lutenizing Hormone 4.4 mIU/mL (1.5-9.3)
== END 2024-03-20 11:31 | disposition home or self-care (01) ==
LOC: HO.HHCL 11:30
PROVIDERS: Visit Provider Internal Medicine
DX: I10 Essential (primary) hypertension (principal); N52.9 Male erectile dysfunction, unspecified
CPT/HCPCS: 36415; 80061; 83001; 83002

== ENCOUNTER 2024-08-18 11:30 | Emergency (ER) | payer OTHER, SELFPAY ==
[2024-08-18 11:36] VITALS: BP 149/101; PULSE 80; RESP 19; TEMP 36.6; O2SAT 98; BMI 30.5
--- NOTE | 2024-08-18 11:39 | ED.GENADULT ---
HPI - General Adult General Chief complaint: General Medical Stated complaint: gen med Time Seen by Provider: 08/18/24 15:14 Source: patient Mode of arrival: ambulatory Limitations: no limitations History of Present Illness ED Provider: Sincere Santana HPI narrative: 48 yold male with pmh of opoid abuse presents to the ED for suboxone withdrawal. patient last used 2 days ago and was tyring to cut suboxone off cold turkey. Patient used to take 24mg daily. patient states abdominal cramps, nausea, and feeling jittery. Related Data Previous Rx's ?Medication ?Instructions ?Recorded amlodipine 5 mg tablet 5 mg PO DAILY #30 tabs 05/26/22 folic acid 1 mg tablet 1 mg PO DAILY #30 tabs 05/26/22 gabapentin 300 mg capsule 300 mg PO TID #90 caps 05/26/22 haloperidol 2 mg tablet 2 mg PO TID #90 tabs 05/26/22 naltrexone 50 mg tablet 50 mg PO DAILY #30 tabs 05/26/22 simethicone 80 mg chewable tablet 80 mg PO TID PRN Abdominal 05/26/22 (Gas Relief (simethicone)) Discomfort #90 tabs thiamine mononitrate (vit B1) 100 100 mg PO DAILY #30 tabs 05/26/22 mg tablet trazodone 50 mg tablet 50 mg PO BEDTIME PRN Insomnia #30 05/26/22 tabs buprenorphine 8 mg-naloxone 2 mg 1 film buccal DAILY 7 days #30 ea 08/18/24 sublingual film (Suboxone) Allergies Allergy/AdvReac Type Severity Reaction Status Date / Time Iodinated Contrast Media Allergy Nausea and Verified 08/18/24 11:37 [Contrast Dye] Vomiting Review of Systems Review of Systems: abdominal cramping, diarrhea, jittery, sweating Yes all other systems are reviewed and are negative PMFSH Past Medical History Medical History Aneurysm Surgical History S/P coil embolization of cerebral aneurysm Social History Social History Household Members: None Housing: Apartment Do you presently have visiting nurse or other home services: No Alcohol intake: unknown Patient Tobacco Use Status: Current everyday Tobacco user Tobacco use type: Cigarette Cigarette Packs Per Day: 1 Cigarettes Per Day: 20.0 Years Smoked: 25 Second Hand Smoke Exposure: No Substance Use Type: Crack/Cocaine Advance Directives: No Advance Directives Information Provided: Yes Do you have a plan to hurt others: No Plan service: No Sexual orientation: Straight/Heterosexual Physical Exam ED Vital Signs: Vital Signs - 24 hr 08/18/24 17:48 Temperature 98 F Pulse Rate 80 Respiratory Rate 19 Blood Pressure 135/85 Pulse Oximetry 98 Oxygen Delivery Method Room Air BMI result Body Mass Index 30.5 Const General: cooperative, healthy appearing, comfortable, no acute distress, well developed, alert, awake and Physically active Orientation/consciousness: patient oriented x3 HENMT Head: Yes normal to inspection, Yes No palpable skull fracture present, Yes normocephalic, Yes atraumatic and No abrasion Eyes General: appearance normal, both eyes and all related structures Neck Neck: Yes normal visual inspection, Yes full ROM, Yes no lymphadenopathy, Yes no meningeal signs, Yes trachea midline, Yes supple, No anterior neck swelling, Yes positive Brudzinski's sign and No tender Chest Chest palpation & inspection: normal inspection of the chest and normal palpation of entire chest wall Resp Effort & Inspection: normal respiratory effort and able to speak in complete sentences Auscultation: clear to auscultation bilaterally Cardio Jugular venous distension: no JVD Heart sounds: S1 normal heart sound present and S2 normal heart sound present GI Inspection: Yes normal to inspection Palpation (GI): Soft to palpation, not firm, nontender, no guarding and not rigid General: Yes no CVA tenderness Back/Spine/Pelvis Back: no CVA tenderness and No Han-Sheets sign present Skin General skin exam: no rashes or lesions noted, elasticity normal and turgor normal Neuro General: patient oriented x3, gait normal, tone normal, moves all extremities, Normal light touch and pain sensation, no meningeal signs, no focal motor deficits, CN's II-XI intact bilaterally and normal sensation to monofilament Extrem General: Yes normal to inspection, Yes full ROM and Yes capillary refill normal Psych Appearance: grossly normal, well kempt and not disheveled Course Course Course Narrative: RME: 48-year-old male is trying to get off Suboxone cold turkey and last took it 2 days ago. Since then for anxious, swelling, muscle cramps insomnia and diarrhea. Medications Administered Discontinued Medications Generic Name Dose Route Start Last Admin Trade Name Uche PRN Reason Stop Dose Admin Buprenorphine/Naloxone 1 film 08/18/24 17:02 08/18/24 17:22 Buprenorphine/Naloxone 8/2 Mg Film SUBLINGUAL 08/18/24 17:03 1 film ONCE ONE Administration Naloxone HCl 4 mg 08/18/24 17:29 08/18/24 17:49 Naloxone Hcl Nasal 4 Mg [place] NOSTRILALT 08/18/24 17:30 4 mg ONCE ONE Administration Medical Decision Making Medical Decision Making [facility] Narrative: 48 yold male presents to the ED for suboxone withdrawal symptoms. patient last had subaxone 2 days ago. patient was trying to stop cold turkey and get off subaxone. Patient states abdominal cramping, anxiety, insomrnia, nausea. Patient denies any suicidal or homicidal ideation. Patient denies any auditory/visual hallucination. We will contact addiction medicinse specialist 5:20PM: Case was discussed with marketing graphics specialist Yoli Woo states patient is should be given 8 mg in the ED for Suboxone. And then patient should be discharged with 8 mg daily of Suboxone for 1 week. He should be referred to comprehensive [facility] and they will titrate the Suboxone. Patient is also be discharged with naloxone. Patient feels better after receiving Suboxone. Patient agree with plan. Not suspecting MO, CHF, PE, PNeumonia, colitits, diverticulitis, abdominal perforation, UTI, encephelopathy, kidney stones, UTI, or any life threatening eitiology. patieint explained worrisome signs and informed to return to the hospital immeidatley. Differential Diagnosis Differential Diagnoses: The differential diagnosis associated with the presentation includes (Suboxone withdrawal) Admission/Observation Consideration of admission/observation: Escalation of care including admission/observation considered Consult Healthcare Provider Management of the patient was discussed with: Sales Operations Specialist (Yoli Woo. Addiction) Lab Data [facility] Lab Attestation statement: I reviewed the patient's lab results. Labs: Lab Results 08/18/24 Range/Units 16:25 Urine Color Yellow Urine Appearance Clear Urine pH 6.0 (5.0-9.0) Ur Specific [place] 1.015 (1.005-1.025) Urine Protein Negative (Neg-Trace) mg/dL Urine Glucose (UA) Negative (Negative) mg/dL Urine Ketones 40 (Negative) mg/dL Urine Blood Negative (Negative) Urine Nitrite Negative (Negative) Ur Leukocyte Esterase Negative (Negative) Urine Opiates Screen Not Detected (Not Detect) Ur Buprenorphine Scrn Positive H (Not Detect) ng/mL Ur Oxycodone Screen Not Detected (Not Detect) ng/mL Urine Methadone Screen Not Detected (Not Detect) ng/mL Urine Fentanyl Screen Not Detected (Not Detect) Ur Barbiturates Screen Not Detected (Not Detect) Ur Phencyclidine Scrn Not Detected (Not Detect) Ur Amphetamines Screen Not Detected (Not Detect) U Benzodiazepines Scrn Not Detected (Not Detect) Urine Cocaine Screen POSITIVE H (Not Detect) U Marijuana (THC) Screen Not Detected (Not Detect) Discharge Plan Discharge Clinical Impression: Encounter for monitoring Suboxone maintenance therapy Patient Disposition: Home, Self-Care Instructions: Buprenorphine/Naloxone (Into the mouth) Additional Instructions: Opiate use disorder You were seen in our Emergency Department today for treatment of opiate use disorder. You may have been dosed with medication for opiate use disorder (MOUD) in the form of suboxone or methadone. You may experience feeling some withdrawal symptoms and this is normal. The? dose in the Emergency Department is a starting dose and meant to be titrated up once you follow up with a clinic. Please do not feel discouraged, it is a process. The nurse has reviewed with you where to follow up and what information to bring with you, to continue treatment. You also may have been given naloxone (narcan) to take home with you. This medication is used to potentially treat opiate overdose. If you decide you want to stop or cut down on how much you?re using, you can call or walk into our outpatient Addiction Treatment office: [facility] (M-F 9am-5p) [address] [place] [address], [address] [phone] You may have been provided with safer injection?items, please take time to take care of YOU and your health. Use new supplies whenever possible to lessen the chances of infections and other illnesses.? ?If you need more supplies, please go [facility],? [address], [place] you can call or text to coordinate delivery of safer supplies. You were also provided a list of several treatment providers in the area.? If you experience any worsening symptoms you cannot control please return to the ED or call 911. Please follow up at your next appointment. Things to look out for are fevers, chest pain, shortness of breath, severe pain, dizziness, fainting or any other concerns. Call [facility] tomorror for follow for suboxone titration Prescriptions: New buprenorphine-naloxone [Suboxone] 8-2 mg film 1 film buccal DAILY 7 Days Qty: 30 0RF No Action amlodipine 5 mg Tablet 5 mg PO DAILY Qty: 30 0RF Protocol: Hold for SBP< HOLD for SBP < : 90 gabapentin 300 mg Capsule 300 mg PO TID Qty: 90 0RF haloperidol 2 mg tablet 2 mg PO TID Qty: 90 0RF trazodone 50 mg Tablet 50 mg PO BEDTIME PRN (Reason: Insomnia) Qty: 30 0RF naltrexone 50 mg Tablet 50 mg PO DAILY Qty: 30 0RF folic acid 1 mg Tablet 1 mg PO DAILY Qty: 30 0RF simethicone [Gas Relief (simethicone)] 80 mg Tablet,Chewable 80 mg PO TID PRN (Reason: Abdominal Discomfort) Qty: 90 0RF thiamine mononitrate (vit B1) 100 mg Tablet 100 mg PO DAILY Qty: 30 0RF Stand Alone Forms: Work/School Release Interventions: ED Discharge Assessment Last Done: 08/18/24 17:48 Discharge Date/Time: 08/18/24 17:49 Print Language: Nigerian
[2024-08-18 16:32] LABS: Appearance Urine Clear; Color Urine Yellow; Glucose Urine UA Negative (Negative); Leukocyte Esterase Urine Negative (Negative); Nitrite Urine Negative (Negative); Specific Gravity - Urine 1.015 (1.005-1.025); Urine Blood Negative (Negative); Urine Ketones 40 mg/dL (Negative); Urine Protein Negative (Neg-Trace)
[2024-08-18 16:41] LABS: Amphetamine Screen Urine Not Detected (Not Detect); Barbiturates, Urine Not Detected (Not Detect); Benzodiazepines Screen Urine Not Detected (Not Detect); Buprenorphine Scr Positive (Not Detect); Cannabinoid Screen Urine Not Detected (Not Detect); Cocaine Screen Urine POSITIVE (Not Detect); Fentanyl, urine Not Detected (Not Detect); Methadone Screen, Urine Not Detected (Not Detect); Opiate Screen Urine Not Detected (Not Detect); Oxycodone Screen Urine Not Detected (Not Detect); Phencyclidine Screen Urine Not Detected (Not Detect)
[2024-08-18] MEDS: Buprenorphine/Naloxone 8/2 mg FILM 1 FILM SUBLINGUAL (17:22)
[2024-08-18 17:48] VITALS: BP 135/85; PULSE 80; RESP 19; TEMP 36.6; O2SAT 98
[2024-08-18] MEDS: Naloxone HCl Nasal 4 MG SPRAY NOSTRILALT (17:49)
== END 2024-08-18 17:49 | disposition home or self-care (01) ==
PROVIDERS: Physician Assistant; Emergency Provider Emergency Medicine
DX: F11.20 Opioid dependence, uncomplicated (principal); R11.0 Nausea; R10.9 Unspecified abdominal pain; Z79.899 Other long term (current) drug therapy
CPT/HCPCS: 80307; 81003; 99282; 99283

== ENCOUNTER 2024-09-11 10:09 | Outpatient (REF) | payer OTHER, SELFPAY ==
[2024-09-11 11:38] LABS: Alanine Aminotransferase 39 U/L (0-40); Albumin Level 4.3 g/dL (3.5-5.0); Alkaline Phosphatase 122 U/L (39-117); Aspartate Amino Transferase 33 U/L (5-37); Bilirubin Direct 0.2 mg/dL (0.0-0.5); Bilirubin Total 0.7 mg/dL (0.0-1.0); Total Protein 7.1 g/dL (6.5-8.0)
--- OUTSIDE RECORDS SUMMARY | 2024-09-11 11:40 | XMS_ITS | Encounter Summary ---
Demographics Address [address] [place] [address] Mobile Phone Home Phone Email Address Preferred Language en Marital Status Single Baptist Affiliation Unknown Race Other Race Ethnic Group Unknown Author Organization [employer] Address [address] [place] [address] Care Team Providers Care Regulatory Submissions Specialist Name Role Phone Garth Snider MD Primary Care Provider Reason for Visit * Reason Onset Date Comments Med Refill 05/28/2024 Encounter Details Date Type Department Care Team (Late st Contact Info) Description 05/28/2024 Refill [facility] [address] [place] [address] Frank Khan MD [address] [place] [address] Social History Tobacco Use Types Packs/Day Years Used Date Smoking Tobacco: Every Day Cigarettes 0.3 35.4 Started: 1989 Smokeless Tobacco: Never Comments:Pt is not ready to quit. Alcohol Use Standard Drinks/Week Comments Not Currently 10 (1 standard drink = 0.6 oz pure alcohol) quit drinking 1 year and 2 months ago. Depression Answer Date Recorded Patient Health Questionnaire-9 Score 0 09/12/2023 Patient Health Questionnaire-9 Score 0 09/12/2023 Last PHQ-9: Questionnaire Data Not on file 0 09/12/2023 Housing Stability Answer Date Recorded What is your housing situation today? I have kailyn odell 09/25/[address] you li ve. Do you have problems with any of the following? None of the above 09/25/2023 Food Insecurity Answer Date Recorded Within the past 12 months, y ou worried that your food would run out before you got money to buy more: Never True 09/25/2023 Within the past 12 months,th e food you bought just didn't last and you didn't have enough money to get more: Never True 06/2023 Transportation Answer Date Recorded In the past 12 months, has l ack of transportation kept you from medical appts, meetings, work or from getting things needed for daily living? No 09/25/2023 Utilities Answer Date Recorded In the past 12 months, has t he electric, gas, oil or water company threatened to shut off services in your home? No 09/25/2023 Depression Answer Date Recorded Patient Health Questionnaire-2 Score 0 09/12/2023 Sex and Gender Information Value Date Recorded Sex Assigned at Male 07/22/2022 1:26 PM EDT Legal Sex Male 1:15 PM EDT Gender Identity Male 07/22/2022 1:26 PM EDT Sexual Orientation Straight 07/22/2022 1: 26 PM EDT documented as of this encounter Plan of Treatment Upcoming Encounters Date Type Department Care Team (Late st Contact Info) Description 09/18/2024 9:45 AM EDT Clinical Support [facility] [address] [place] [address] Jimmy Davila, DIANA [address] [place] [address] documented as of this encounter Visit Diagnoses Not on filedocumented in this encounter Additional Health Concerns Assessment Noted Time PHQ-9 Depression Total Score: 0 09/12/19 2:05 PM EDT documented as of this encounter Care Teams Regulatory Submissions Specialist Relationship Specialty Start Date End Date Garth Snider MD [address] [place] [address] PCP - General Internal Medicine 10/02/23 documented as of this encounter
--- OUTSIDE RECORDS SUMMARY | 2024-09-11 11:40 | XMS_ITS | Encounter Summary ---
Demographics Address [address] [place] [address] Mobile Phone Home Phone Email Address Preferred Language en Marital Status Single Jew Affiliation Unknown Race Other Race Ethnic Group Unknown Author Organization [employer] Address [address] [place] [address] Care Team Providers Care Parking Supervisor Name Role Phone Garth Snider MD Primary Care Provider Encounter Details Date Type Department Care Team (Late st Contact Info) Description 05/17/2024 Orders Only [facility] [address] [place], [place] [phone] Garth Snider MD [address] [place] [address] Social History Tobacco Use Types Packs/Day Years [...] Description 09/18/2024 9:45 AM EDT Clinical Support [facility] [address] [place] [id number] Jimmy Davila, RN [address] [place] [address] documented as of this encounter Visit Diagnoses Not on filedocumented in this encounter Additional Health Concerns Assessment Noted Time PHQ-9 Depression Total Score: 0 09/12/19 2:05 PM EDT documented as of this encounter Care Teams Parking Supervisor Relationship Specialty Start Date End Date Garth Snider MD [address] [place] [id number] PCP - General Internal Medicine 10/02/23 documented as of this encounter
--- OUTSIDE RECORDS SUMMARY | 2024-09-11 11:40 | XMS_ITS | Encounter Summary ---
Demographics Address [address] [place] [address] Mobile Phone Home Phone Email Address Preferred Language en Marital Status Single Gnosticist Affiliation Unknown Race Other Race Ethnic Group Unknown Author Organization [employer] Address [address] [place] [address] Care Team Providers Care Electric Blanket Wirer Name Role Phone Garth Snider MD Primary Care Provider Encounter Details Date Type Department Care Team (Latest Contact Info) Description 03/21/[address] [facility] [address] [place], [place] [phone] Garth Snider MD [address] [place], [place] [phone] Hypercholesterolemia (Primary Dx) Social History Tobacco Use Types Packs/Day Years [...] Description 09/18/2024 9:45 AM EDT Clinical Support [facility] [address] [place] [address] Jimmy Davila, DIANA [address] [place] [address] documented as of this encounter Visit Diagnoses Diagnosis Hypercholesterolemia- Primary Pure hypercholesterolemia documented in this encounter Additional Health Concerns Assessment Noted Time PHQ-9 Depression Total Score: 0 09/12/19 2:05 PM EDT documented as of this encounter Care Teams Electric Blanket Wirer Relationship Specialty Start Date End Date Garth Snider MD [address] [place] [address] PCP - General Internal Medicine 10/02/23 documented as of this encounter
--- OUTSIDE RECORDS SUMMARY | 2024-09-11 11:40 | XMS_ITS | Encounter Summary ---
Author Organization [employer] Address [address] [place] [address] Care Team Providers Care Digital Print Operator Name Role Phone Garth Snider MD Primary Care Provider [phone] Reason for Visit * Reason Onset Date Comments Nurse Triage 06/13/2024 Encounter Details Date Type Department Care Team ([facility] st Contact Info) Description 06/13/2024 Telephone [facility] [address] [place] [address] Garth Snider MD [address] [place], [place] [phone] Nurse Triage Social History Tobacco Use Types Packs/Day Years [...] PM EDT documented as of this encounter Miscellaneous Notes * Telephone Encounter - Eliza Sepulveda RN - 06/13/2024 4:07 PM EST called pt to triage, spoke to pt. pt states has not had his BP medication for several months and thinks his BP may be high. pt did not know he had refills and was advised to call his pharmacy to refill as soon as possible. pt denies known high BP readings, headaches, blurred vision, numbness, or other associated symptoms. advised home care: rest, fluids, refill and restart medication, and call back early next week for appt if needed. pt understands and agrees with plan. insurance verified. Protocol Used: Blood Pressure - High (Adult) Protocol-Based Disposition: See in Office or Video Visit within 2 Weeks Positive Triage Question: * Patient wants doctor (or PLATING INSPECTOR/PA) to measure BP * All higher-acuity triage questions were negative Care Advice Discussed: * Reasons To Call Back - Headache, blurred vision, difficulty talking, or difficulty walking occurs - Chest pain or difficulty breathing occurs - You want to go into the office for a blood pressure check - You become worse * Telephone Encounter - Olga Lidia Byrd - 06/13/2024 3:28 PM EST Symptom: High Blood Pressure - Caller Reports Outcome: Transfer to a nurse or provider NOW! Reason: Trouble breathing The caller accepted this outcome. documented in this encounter Plan of Treatment Upcoming Encounters Date Type Department Care Team (Late st Contact Info) Description 09/18/2024 9:45 AM EDT Clinical Support [facility] [address] [place] [address] Jimmy Davila, RN [address] [place] [address] documented as of this encounter Visit Diagnoses Not on filedocumented in this encounter Additional Health Concerns Assessment Noted Time PHQ-9 Depression Total Score: 0 09/12/19 2:05 PM EDT documented as of this encounter Care Teams Digital Print Operator Relationship Specialty Start Date End Date Garth Snider MD [address] [place] [id number] PCP - General Internal Medicine 10/02/23 documented as of this encounter
--- OUTSIDE RECORDS SUMMARY | 2024-09-11 11:40 | XMS_ITS | Encounter Summary ---
Author Organization [employer] Address [address] [place] [address] Care Team Providers Care Board Stacker Name Role Phone Garth Snider MD Primary Care Provider Encounter Details Date Type Department Care Team (Latest Contact Info) Description 09/11/2024 Travel Social History Tobacco Use Types Packs/Day Years [...] Description 09/18/2024 9:45 AM EDT Clinical Support [facility] [address] [place] [address] Jimmy Davila, RN [address] [place] [address] documented as of this encounter Goals Goal Patient Goal Type Associated Problems Recent Progress Patient-Stated? Author Increase coping skills to promote long-term recovery and improve ability to perform daily activities General No Jimmy Davila, RN Take your medication every day Lifestyle No Jimmy Davila, DIANA documented as of this encounter Visit Diagnoses Not on filedocumented in this encounter Additional Health Concerns Assessment Noted Time PHQ-9 Depression Total Score: 0 09/12/19 24 2:05 PM EDT documented as of this encounter Care Teams Board Stacker Relationship Specialty Start Date End Date Garth Snider MD [address] [place] [id number] PCP - General Internal Medicine 10/02/23 documented as of this encounter
--- OUTSIDE RECORDS SUMMARY | 2024-09-11 11:40 | XMS_ITS | Encounter Summary ---
Author Organization [facility] Address [address] [place] [address] Care Team Providers Care Home Appliance Tech Name Role Phone Filemon Tate MD Primary Care Provider [phone] Encounter Details Date Type Department Care Team (Late st Contact Info) Description 07/01/2016 Scanned Document [facility] [address] [place] [address] [place] [phone] Ajith Donovan MD [address] [facility] [address] [place] [address] Social History Tobacco Use Types Packs/Day Years Used Date Smoking Tobacco: Every Day Comments:5-6 cigarrettes a d ay 07/01/2016.//la Alcohol Use Standard Drinks/Week Comments No 0 (1 standard drink = 0.6 oz pur e alcohol) Sex and Gender Information Value Date Recorded Sex Assigned at Not on file Legal Sex Male 4:39 PM EDT Gender Identity Not on file Sexual Orientation Not on file documented as of this encounter Plan of Treatment Not on file documented as of this encounter Visit Diagnoses Not on filedocumented in this encounter Care Teams Home Appliance Tech Relationship Specialty Start Date End Date Filemon Tate MD [address] [place] [address] PCP - General Family Medicine 05/06/16 documented as of this encounter
--- OUTSIDE RECORDS SUMMARY | 2024-09-11 11:40 | XMS_ITS | Clinical Summary ---
Author Organization [employer] Address [address] [place] [address] Care Team Providers Care Building Wrecker Name Role Phone Garth Snider MD Primary Care Provider Allergies No known active allergies Medications * This document contains information received from the source organization and may not represent a complete record from that organization. OLANZapine (ZyPREXA) 15 MG tablet 15 mg at bedtime. Active hydrOXYzine HCl (Atarax) 25 MG tablet Take 25 mg by mouth. Active polyethylene glycol, PEG, 3350 (MiraLax) 17 GM/SCOOP powder 1 scoop in 8 ounces of liquid once daily for 3-4 days, the once every 3 days for constipation. 527 g Active Blood Pressure kit 1 each 2 times daily. 1 kit 024 2024 Active senna (Senokot) 8.6 MG tablet TAKE 1 TO 2 TABLETS BY MOUTH EVERY DAY AT BEDTIME NEEDED FOR CONSTIPATION 60 tablet 2 Active tadalafil (Cialis) 5 MG tabletIndicatio ns:Other male erectile dysfunction Take 1 tablet (5 mg) by mouth Once per day. 30 tablet 11 024 2024 Active atorvastatin (Lipitor) 20 MG tabletIndicatio ns:Hypercholest erolemia Take 2 tablets (40 mg) by mouth Once per day. 60 tablet 11 024 2024 Active docusate sodium (Colace) 100 MG capsule TAKE 1 TO 2 CAPSULES BY MOUTH EVERY DAY AT BEDTIME NEEDED FOR CONSTIPATION 60 capsule 3 Active naloxone (Narcan) 4 mg/0.1 mL nasal spray Administer 1 spray (4 mg) into affected nostril(s) if needed for opioid reversal. May repeat every 2-3 minutes if needed, alternating nostrils, until medical assistance becomes available. 2 each 025 2025 Active Buprenorphine HCl-Naloxone HCl (Suboxone) 8-2 MG SL filmIndications :Uncomplicated opioid dependence (CMS/HCC) Place 1 Film under the tongue 3 times daily. 21 Film Active lisinopril-hydr oCHLOROthiazide 10-12.5 MG tabletIndicatio ns:Primary hypertension Take 1 tablet by mouth Once per day. 30 tablet 11 024 2024 Discontinued Buprenorphine HCl-Naloxone HCl (Suboxone) 8-2 MG SL filmIndications :Uncomplicated opioid dependence (CMS/HCC) Place 1 Film under the tongue 3 times daily. 84 Film 025 2024 Discontinued(R eorder (will not trigger notification to Pharmacy)) Buprenorphine HCl-Naloxone HCl (Suboxone) 8-2 MG SL filmIndications :Uncomplicated opioid dependence (CMS/HCC) Place 3 Film under the tongue 3 times daily. 21 Film 025 2024 Discontinued(R eorder (will not trigger notification to Pharmacy)) Buprenorphine HCl-Naloxone HCl (Suboxone) 8-2 MG SL filmIndications :Uncomplicated opioid dependence (CMS/HCC) Place 1 Film under the tongue 3 times daily. 21 Film 025 2024 Discontinued(R eorder (will not trigger notification to Pharmacy)) Active Problems Problem Noted Date Diagnosed Date Hypertension 08/28/2024 Assessment & Plan (09/11/2024 10:14 AM EDT): - patient states he takes an antihypertensive which he does not know its name - continue monitoring BP and taking medication - continue lifestyle modification - schedule an urgent follow up with PCP Assessment & Plan (08/28/2024 11:22 AM EDT): - patient states he takes an antihypertensive which he does not know its name - continue monitoring BP and taking medication - continue lifestyle modification - schedule an urgent follow up with PCP Hypercholesterolemia 03/25/2024 Other male erectile dysfunction 03/18/2024 Tobacco dependence 12/19/2023 Assessment & Plan (08/28/2024 11:27 AM EDT): - continue working on smoking cessation Brain aneurysm 10/02/2023 Overview (10/02/2023): H/o Brain aneurysm s/p surgery 12 years ago. H/O: stroke 10/02/2023 Overview (10/02/2023): Ten years ago. Opioid use disorder in remission 09/12/2023 Assessment & Plan (09/11/2024 10:13 AM EDT): - stage of change: preparation / action - Utox review: pos bup and antonio since induction on 08/21/24 - Overdose risk: high risk. Hx overdose; decreased tolerance; uses alone; mixed use - Assess need for recovery support at next visit - Continue current recovery effort - Reviewed harm reduction and overdose prevention Assessment & Plan (08/28/2024 11:29 AM EDT): - stage of change: preparation / action - Utox review: 08/28/24 pos bup and antonio - Overdose risk: high risk. Hx overdose; decreased tolerance; uses alone; mixed use - Assess need for recovery support at next visit - Continue current recovery effort - Reviewed harm reduction and overdose prevention Adjustment disorder with anxiety 09/12/2023 Assessment & Plan (09/12/2023 2:23 PM EDT): PROGRESS NOTE: ID: Zack is a 47 y.o. Other straight-identified cis-male with self reported history of Psychosis and Mood Disorder. No previous hx of MH dx or sx No previous hx of MH services who presents for Substance Use Disorder and Anxiety. Zack was released last week from residential after completing sentence of 2.3 years. Currently living at [facility]. During IBH Consult Zack presenting with excessive worry/anxiety and difficulty controlling worry and has hx of substance use, last use was prior incarceration 2 years ago, has been taking suboxone 16/4mg daily. , in regard to Opioids; for a period of 18+ mo, for some symptoms in the context of recently released from residential on 09/06/23, still adjusting to living at the [facility], lack of OP services, concern about running out of Psych meds. PLAN: New/Additional Services needed Off-site services for Behavioral Health Integration Plan External OP therapy referral and OP psychiatry Referral Patient Self Plan Patient to reach out to [facility] team as needed, Comply with medication , Patient to engage in OP therapy , and Patient to reach out to [facility] as needed Encounters Date Type Department Care Team Description 09/11/2024 10:00 AM EDT Office Visit [facility] [address] [place] [phone] Samreen Casarez MD Opioid use disorder in remission (Primary Dx); Hypertension, unspecified type 09/11/2024 Travel 09/05/[address] [address] Jimmy Davila RN Uncomplicated opioid dependence (CMS/HCC) 09/04/2024 10:00 AM EDT Clinical Support [address] [address] Jimmy Davila RN Uncomplicated opioid dependence (CMS/HCC) (Primary Dx) 09/04/2024 Travel 08/29/[address] [address] Jimmy Davila RN Uncomplicated opioid dependence (CMS/HCC) 08/29/2024 Telephone [facility] [address] [place], [place] [phone] Garth Snider MD Appointment Request 08/28/2024 11:00 AM EDT Office Visit [address] [address] Samreen Casarez MD Opioid use disorder in remission (Primary Dx); Uncomplicated opioid dependence (CMS/HCC); Routine screening for STI (sexually transmitted infection); Hypertension, unspecified type; Tobacco dependence 08/28/2024 10:00 AM EDT Office Visit [address] [address] Connie Beckford RN Opioid use disorder in remission 08/28/2024 Travel 08/19/[address] [place] [address] Connie Beckford, DIANA 07/11/2024 Refill [facility] [address] [place] [address] Connie Beckford, RN Uncomplicated opioid dependence (CMS/HCC) 06/14/2024 Telephone [facility] [address] [place] [address] Garth Snider MD Appointment Request (Pt needs appt) from Last 3 Months Immunizations Immunization Administration Dates Next Due HepB-CpG 03/26/2024,01/02/2024 Influenza, seasonal, injectable, preservative fr ee 03/18/2024 Family History Medical History Relation Name Comments Brain Aneurysm Mother Relation Name Status Comments Mother Social History Tobacco Use Types Packs/Day Years Used Date Smoking Tobacco: Every Day Cigarettes 0.3 35.4 Started: 1989 Smokeless Tobacco: Never Tobacco Cessation:Ready to Q uit: No; Counseling Given: Yes Comments:Pt is not ready to quit. Alcohol [...] the past 12 months, has t he [employer], oil or water [employer] threatened to shut off services in your home? No 09/25/2023 Depression Answer Date Recorded Patient Health Questionnaire-2 Score 0 09/12/2023 Sex and Gender Information Value Date Recorded Sex Assigned at Male 07/22/2022 1:26 PM EDT Legal Sex Male 1:15 PM EDT Gender Identity Male 07/22/2022 1:26 PM EDT Sexual Orientation Straight 07/22/2022 1: 26 PM EDT Last Filed Vital Signs Vital Sign Reading Time Taken Comments Blood Pressure 158/100 09/11/2024 10:04 AM EDT Pulse 88 08/28/2024 10:01 AM EDT Temperature 36.4 ??C (97.5 ??F) 08/28/2024 10:01 AM E DT Respiratory Rate 20 08/28/2024 10:01 AM EDT Oxygen Saturation 97% 03/18/2024 1:06 PM EST Inhaled Oxygen Concentration - - Weight 88 kg (194 lb 0.2 oz) 08/28/2024 10:01 AM EDT Height 170.2 cm (5' 7 ) 03/18/2024 1:06 PM EST Body Mass Index 30.39 03/18/2024 1:06 PM EST Plan of Treatment Upcoming Encounters Date Type Department Care Team (Late st Contact Info) Description 09/18/2024 9:45 AM EDT Clinical Support [facility] [address] [place] [address] Jimmy Davila, RN [address] [place] [address] Health Maintenance Due Date Last Done Comments CT Colonography 1973 Colonoscopy 1973 FIT 1973 FOBT 1973 Sigmoidoscopy 1973 Disability Screening 1973 Family Planning (PISQ) 1988 Pneumococcal Vaccine: 50+ Years (2 of 2 - PPSV23) 07/05/2023 05/10/2023 Zoster Vaccines (1 of 2) 12/10/2023 Alcohol/Substance Use Screening 09/11/2024 09/12/2023 Depression Screening 09/11/2024 09/12/2023, 09/12/19 24 SDOH Screening 09/24/2024 09/25/2023 COVID-19 Vaccine ( - season) 2025 Postponed from 12/24/2023 (Patient Refused) Tobacco Screening 03/26/2025 03/26/2024 DTaP/Tdap/Td Vaccines (2 - Td or Tdap) 04/27/2026 04/27/2016 Colorectal Cancer Screening 05/08/2027 FIT DNA/Cologuard 05/08/2027 05/08/2024 Lipid Panel 03/20/2029 03/20/2024 RSV Patients and Patients Aged 60 years or older (1 - 1-dose 75+ series) 2048 HIV Screening Completed 11/07/2023 Hepatitis C Screening Completed 11/07/2023 Influenza Vaccine Completed 03/18/2024, , 01/03/2017, Additional history exists Hepatitis B Vaccines Completed 03/26/2024, 01/02/20 24 HIB Vaccines Aged Out No longer eligi ble based on patient's age to complete this topic HPV Vaccines Aged Out No longer eligi ble based on patient's age to complete this topic Hepatitis A Vaccines Aged Out No long er eligible based on patient's age to complete this topic IPV Vaccines Aged Out No longer eligi ble based on patient's age to complete this topic Meningococcal B Vaccine Aged Out No l onger eligible based on patient's age to complete this topic Meningococcal Vaccine Aged Out No reddy blayne eligible based on patient's age to complete this topic RSV under 20 months Aged Out No longe r eligible based on patient's age to complete this topic Rotavirus Vaccines Aged Out No longer eligible based on patient's age to complete this topic Goals Goal Patient Goal Type Associated Problems Recent Progress Patient-Stated? Author Increase coping skills to promote long-term recovery and improve ability to perform daily activities General No Jimmy Davila, RN Take your medication every day Lifestyle No Jimmy Davila, press loader Procedure Name Priority Date/Time Associated Diagnosis Comments HEPATIC FUNCTION PANEL Routine 09/11/2024 10:12 AM EDT Opioid use disorder in remission POCT SAMANTHA-14 URINE DRUG SCREEN Routine 09/11/2024 9:50 AM EDT Opioid use disorder in remission POCT SAMANTHA-14 URINE DRUG SCREEN Routine 09/04/2024 9:56 AM EDT Uncomplicated opioid dependence (CMS/HCC) POCT SAMANTHA-14 URINE DRUG SCREEN Routine 08/28/2024 10:02 AM EDT Opioid use disorder in remission LAB COLOGUARD?? COLON CANCER SCREEN Routine 05/08/2024 7:14 PM EST Screening for colon cancer LIPID PANEL, STANDARD Routine 03/20/2024 11:35 AM EST Primary hypertension HEPATITIS C AB W/REFL TO HCV RNA, QN, PCR Routine 11/07/2023 10:07 AM EDT Uncomplicated opioid dependence (CMS/HCC) Opioid use disorder HIV 1/2 ANTIGEN/ANTIBODY, FOURTH GENERATION W/RFL Routine 11/07/2023 10:07 AM EDT Uncomplicated opioid dependence (CMS/HCC) Opioid use disorder from Last 3 Months or Most Recently Relevant to Health Maintenance Results * (ABNORMAL) Hepatic Function Panel (09/11/2024 10:12 AM EDT) Bilirubin, Total 0.7 0.0 - 1.0 mg/dL [facility] Bilirubin, Direct 0.2 0.0 - 0.5 mg/dL [facility] Aspartate Amino Transferase 33 5 - 37 U/L [facility] Alanine Aminotransferase 39 0 - 40 U/L [facility] Total Protein 7.1 6.5 - 8.0 g/dL [facility] Albumin Level 4.3 3.5 - 5.0 g/dL [facility] Alkaline Phosphatase 122(H) 39 - 117 U/L [facility] Blood Venous blood specimen / Unknown 09/11/2024 10:12 AM EDT 09/11/2024 11:03 AM EDT us Samreen Casarez MD LAB BLOOD ORDERABLES Final Resul t [facility] [address] [place] [address] [phone] * POCT SAMANTHA-14 Urine Drug Screen (09/11/2024 9:50 AM EDT) Only the most recent of3 resultswithin the time period is included. THC Negative Cocaine Screen, Urine Positive Opiate Screen, Urine Negative Methamphetamine Screen Urine Negative Amphetamine Screen, Urine Negative Benzodiazepines Screen, Urine Negative Barbiturate Screen, Urine Negative Methadone Screen, Urine Negative Buprenophine Screen, Urine Positive TCA, Urine Negative MDMA Urine Negative ng/mL Oxycodone Screen, Urine Negative Phencyclidine (PCP), Urine Negative Fentanyl, Urine Negative Urine Urine specimen obtained by clean catch procedure / Unknown 09/11/2024 9:50 AM EDT Samreen Casarez MD POINT OF CARE TEST ENTER/EDIT OR DERABLES Final Result * Cologuard?? colon cancer screening (05/08/2024 7:14 PM EST) Cologuard Result Negative Negative 05/17/19 10:35 AM EST [facility] (CLIA #:[id number]) Comment: NEGATIVE TEST RESULT. A negative Cologuard result indicates a low likelihood that a colorectal cancer (CRC) or advanced adenoma (adenomatous polyps with more advanced pre-malignant features) ??is present. The chance that a person with a negative Cologuard test has a colorectal cancer is less than 1 in 1500 (negative predictive value >99.9%) or has an ??advanced adenoma is less than ??5.3% (negative predictive value 94.7%). These data are based on a prospective cross-sectional study of 10,000 individuals at average risk for colorectal cancer who were screened with both Cologuard and colonoscopy. (Trudy Maria al, N Engl J Med 2014;370(14):1286- 1297) The normal value (reference range) for this assay is negative. COLOGUARD RE-SCREENING RECOMMENDATION: Periodic colorectal cancer screening is an important part of preventive healthcare for asymptomatic individuals at average risk for colorectal cancer. ??Following a negative Cologuard result, the [place] [employer] Society and U.S. Multi-Society Task Force screening guidelines recommend a Cologuard re-screening interval of 3 years. References: [place] [employer] Guideline for Colorectal Cancer Screening: https://www.cancer.org/cancer/xabel-ddftxx-ofevfl/fhfxivfxr-sjlbmmswx-tijkpqf/ac s-rec ommendations.html.; Roland DK, Precious CR, Mamadou SkinnerK, Colorectal Cancer Screening: Recommendations for Physicians and Patients from the U.S. Multi-Society Task Force on Colorectal Cancer Screening , Am J Gastroenterology 2017; 112:3823-4607. TEST DESCRIPTION: Composite algorithmic analysis of stool DNA-biomarkers with hemoglobin immunoassay. ?? Quantitative values of individual biomarkers are not reportable and are not associated with individual biomarker result reference ranges. Cologuard is intended for colorectal cancer screening of adults of either sex, 45 years or older, who are at average-risk for colorectal cancer (CRC). Cologuard has been approved for use by the U.S. FDA. The performance of Cologuard was established in a cross sectional study of average-risk adults aged 50-84. Cologuard performance in patients ages 45 to 49 years was estimated by sub-group analysis of near-age groups. Colonoscopies performed for a positive result may find as the most clinically significant lesion: colorectal cancer [4.0%], advanced adenoma (including sessile serrated polyps greater than or equal to 1cm diameter) [20%] or non- advanced adenoma [31%]; or no colorectal neoplasia [45%]. These estimates are derived from a prospective cross-sectional screening study of 10,000 individuals at average risk for colorectal cancer who were screened with both Cologuard and colonoscopy. (Trudy Maria al, N Engl J Med 2014;370(14):4648-5571.) Cologuard may produce a false negative or false positive result (no colorectal cancer or precancerous polyp present at colonoscopy follow up). A negative Cologuard test result does not guarantee the absence of CRC or advanced adenoma (pre-cancer). The current Cologuard screening interval is every 3 years. ([place] [employer] and U.S. Multi-Society Task Force). Cologuard performance data in a 10,000 patient pivotal study using colonoscopy as the reference method can be accessed at the following location: www.[employer], [employer]/results. Additional description of the Cologuard test process, warnings and precautions can be found at www.[employer]. Stool specimen (specimen) 05/08/2024 7:14 PM EST 05/11/2024 12:23 PM EST us Garth Snider MD LAB MOLECULAR DIAGNOSTICS O RDERABLES Final Result [facility] (CLIA #:[id number]) [address] [place] [address], * (ABNORMAL) Lipid Panel, Standard (03/20/2024 11:35 AM EST) Triglycerides 150(H) <150 mg/dL [facility] Comment:Desirable Triglyceri de: less than 150 mg/dLBorderline High Triglyceride 150-199 mg/dLHigh Triglyceride: 200-499 mg/dLVery High Triglyceride: greater than or equal to 5OO mg/dL Cholesterol 241(H) <200 mg/dL [facility] Comment:Desirable Cholestero l: less than 200 mg/dLBorderline High Cholesterol: 200-239 mg/dLHigh Cholesterol: greater than 239 mg/dL LDL Cholesterol Calculated 188(H) <100 mg/dL [facility] Comment:Desirable LDL: less than 100 mg/dLNear Optimal/Above Optimal LDL: 110- 129 mg/dLBorderline High LDL: 130-159 mg/dLHigh LDL: 160-189 mg/dLVery High LDL: greater than or equal to 190 mg/dL HDL Cholesterol 23(L) >40 mg/dL [facility] Comment:Desirable HDL: great er than 40 mg/dL Note: This HDL assay may give artificially low results in patients with liver disease. Blood Venous blood specimen / Unknown 03/20/2024 11:35 AM EST 03/20/2024 1:12 PM EST us Garth Snider MD LAB BLOOD ORDERABLES Final Result Performing Organization Address [facility] Co de Phone Number [facility] [address] [place] [address] [phone] * Hepatitis C Antibody with Reflex to HCV, RNA, Quantitative, Real-Time PCR (11/07/2023 10:07 AM EDT) Hepatitis C Antibody Nonreactive Nonreactive [facility] Comment:Antibodies to HCV no t detected; does not exclude early acuteHCV infection. Blood Venous blood specimen / Unknown 11/07/2023 10:07 AM EDT 11/07/2023 11:28 AM EDT Sg Braden MD LAB BLOOD ORDERABLES Final Res ult Performing Organization Address [facility] Co de Phone Number [facility] [address] [place] [phone] * HIV-1/2 Antigen and Antibodies, Fourth Generation, with Reflexes (11/07/2023 10:07 AM EDT) HIV AB/AG Nonreactive Nonreactive [facility] Comment:HIV-1 p24 Ag and/or HIV-1/HIV-2 Ab not detected.A test result that is nonreactive does not exclude thepossibility of exposure to or infection with HIV-1 and/orHIV-2. Nonreactive results in this assay for individualswith prior exposure to HIV-1 and/or HIV-2 may be due toantigen and antibody levels that are below the limit ofdetection of this assay.The [employer] HIV Ag/Ab Combo assay result andsupplemental assay results should be interpreted inconjunction with the patient's clinical presentation,history and other laboratory results. If the results areinconsistent with clinical evidence, additional testing issuggested to confirm the result. Blood Venous blood specimen / Unknown 11/07/2023 10:07 AM EDT 11/07/2023 11:28 AM EDT us Sg Braden MD LAB BLOOD ORDERABLES Final Res ult [facility] [address] [place], [place] [phone] from Last 3 Months or Most Recently Relevant to Health Maintenance Insurance [employer] [facility]ARE < 65 * Guarantor: Zack Guido Account Type Relation to Patient Date of Phone Billing Address Personal/Family Self [address] [place] [address] Care Teams Building Wrecker Relationship Specialty Start Date End Date Garth Snider MD [address] [place] [phone] PCP - General Internal Medicine 10/02/23
--- OUTSIDE RECORDS SUMMARY | 2024-09-11 11:40 | XMS_ITS | Clinical Summary ---
Author Organization [facility] Address [address] [place] [address] Care Team Providers Care Tank Tester Name Role Phone Filemon Tate MD Primary Care Provider [phone] Allergies Active Allergy Reactions Criticality Noted Date Comments Iodinated Contrast Media GI Intolerance/Nausea/Vomiti ng Low 05/09/2016 dizziness Medications Aspirin (ASPIR-81 PO) 81 mg. 01/07/2015 Activ e traMADol (ULTRAM) 50 MG tabletIndicatio ns:Neuropathic pain Take 1 tablet (50 mg total) by mouth 3 (three) times a day as needed for moderate pain. 30 tablet 0 06/22/2016 Active Active Problems Problem Noted Date Diagnosed Date Cerebral aneurysm, nonruptured 02/18/2015 Polysubstance abuse Social History Tobacco Use Types Packs/Day Years [...] on file Sexual Orientation Not on file Last Filed Vital Signs Vital Sign Reading Time Taken Comments Blood Pressure 114/76 07/01/2016 9:30 AM EST Pulse 60 07/01/2016 9:30 AM EST Temperature 35.7 ??C (96.2 ??F) 05/10/2016 10:[address] Respiratory Rate 16 07/01/2016 9:30 AM EST Oxygen Saturation 98% 05/10/2016 2:10 PM EST Inhaled Oxygen Concentration - - Weight 85.1 kg (187 lb 9.6 oz) 07/01/2016 9:30 A M EST Height 170.2 cm (5' 7 ) 07/01/2016 9:30 AM EST Body Mass Index 29.38 07/01/2016 9:30 AM EST Plan of Treatment Health Maintenance Due Date Last Done Comments Hepatitis C Virus Screening 1973 HIV Screening 1986 DTaP/Tdap/Td Vaccines (1 - Tdap) 1992 Hepatitis B Vaccines (1 of 3 - 19+ 3-dose series) 11/22 Colonoscopy 2018 Pneumococcal Vaccines 50+ (1 of 1 - PCV) 12/10/2023 Zoster (Shingles) Vaccine (1 of 2) 12/10/2023 COVID-19 Vaccine (1 - 2023- season) 2023 Influenza Vaccine 11/22/2024 Insurance MEDICARE PART A & B MEDICAID OUT OF STATE [facility] Care Teams Tank Tester Relationship Specialty Start Date End Date Filemon Tate MD [address] [place] [phone] PCP - General Family Medicine 05/06/16
--- OUTSIDE RECORDS SUMMARY | 2024-09-11 11:40 | XMS_ITS | Encounter Summary ---
Demographics Address [address] [place] [address] Mobile Phone Home Phone Email Address Preferred Language en Marital Status Single Mu-Ism Affiliation Unknown Race Other Race Ethnic Group Unknown Author Organization [employer] Address [address] [place] [address] Care Team Providers Care Flight Reservations Manager Name Role Phone Garth Snider MD Primary Care Provider [phone] Reason for Visit * Reason Comments OBAT F/U Encounter Details Date Type Department Care Team ([facility] st Contact Info) Description 09/11/2024 10:00 AM EDT Office Visit [facility] [address] [place] [address] Samreen Casarez MD [address] [place] [address] Opioid use disorder in remission (Primary Dx); Hypertension, unspecified type Social History Tobacco Use Types Packs/Day Years [...] PM EDT documented as of this encounter Last Filed Vital Signs Vital Sign Reading Time Taken Comments Blood Pressure 158/100 09/11/2024 10:04 AM EDT Pulse - - Temperature - - Respiratory Rate - - Oxygen Saturation - - Inhaled Oxygen Concentration - - Weight - - Height - - Body Mass Index - - documented in this encounter Progress Notes * Samreen Casarez MD - 09/11/2024 10:00 AM EDT Subjective Patient ID: Zack Guido is a 48 y.o. male who presents for OBAT RV. HPI Patient on current Suboxone dose of 24/6 mg on a weekly schedule. Patient has been in the program for 1 week. Previously in [facility] from August 2023 to March 2024. Provider intake: 08/28/24. LFTs: ordered 08/28/24. Patient actively enrolled in behavioral health services, therapist Elba. DEANNE TRONCOSO reviewed by provider. Last PCP appt 03/18/24. Smoking status: 09/11/24: smokes 10 cigs/day Last visit 09/04/24 Utox pos bup, antonio Zack seen today for follow up for opioid use disorder. Reports feeling much better on dose of 24/6mg with no substance use, cravings, withdrawal symptoms, adverse effects. Reports last cocaine use was over a week ago. Has fentanyl test strips and Narcan. Also met with therapist Elba today and she will refer to Kraig Mon[facility]. Pt has been seen in the past for schizophrenia but not on meds currently and cannot remember what he was taking. Today: 09/11/24 Utox: pos bup, antonio Zack states he still smokes cocaine occasionally. He is still waiting for an appointment with PCP because his BP has been high. He is taking a medication, but he does not remember its name. He is cutting down on smoking, 1/2 ppd. He states he knows some off-site recovery coaches, and states he hassome support. Plan: Suboxone dosing schedule of 24/6 mg daily and management of side effects reviewed. Recovery support, harm reduction (including Narcan), and behavioral health attendance reviewed. Appointment for 1 week given. Patient expressed understanding and agreement with continuing plan of care. This information has been disclosed to you from records protected by federal confidentiality rules (42 CFR Part 2). The federal rules prohibit you from making any further disclosure of information inthis record that identifies a patient as having or having had a substance use disorder either directly, by reference to publicly available information, or through verification of such identification by another person unless further disclosure is expressly permitted by the written consent of the individual whose information is being disclosed or as otherwise permitted by (see2.3.1). The federal rules restrict any use of the information to investigate or prosecute with regard to a crime any patient with a substance use disorder, except as provided at 2.12??(5) and 2.65. Review of Systems Constitutional: Negative for activity change, appetite change, chills, fatigue and fever. Respiratory: Negative for shortness of breath. Cardiovascular: Negative for chest pain. Skin: Negative for wound. Neurological: Negative for headaches. Objective Physical Exam Constitutional: General: He is not in acute distress. Appearance: Normal appearance. Pulmonary: Effort: Pulmonary effort is normal. Neurological: Mental Status: He is alert. Psychiatric: Mood and Affect: Mood normal. Behavior: Behavior normal. Office Visit on 09/11/2024 Component Date Value Ref Range Status THC 09/11/2024 Negative Final Cocaine Screen, Urine 09/11/2024 Positive Final Opiate Screen, Urine 09/11/2024 Negative Final Methamphetamine Screen Urine 09/11/2024 Negative Final Amphetamine Screen, Urine 09/11/2024 Negative Final Benzodiazepines Screen, Urine 09/11/2024 Negative Final Barbiturate Screen, Urine 09/11/2024 Negative Final Methadone Screen, Urine 09/11/2024 Negative Final Buprenophine Screen, Urine 09/11/2024 Positive Final TCA, Urine 09/11/2024 Negative Final MDMA Urine 09/11/2024 Negative ng/mL Final Oxycodone Screen, Urine 09/11/2024 Negative Final Phencyclidine (PCP), Urine 09/11/2024 Negative Final Fentanyl, Urine 09/11/2024 Negative Final Assessment/Plan Problem List Items Addressed This Visit Opioid use disorder in remission - Primary - stage of change: preparation / action - Utox review: pos bup and antonio since induction on 08/21/24 - Overdose risk: high risk. Hx overdose; decreased tolerance; uses alone; mixed use - Assess need for recovery support at next visit - Continue current recovery effort - Reviewed harm reduction and overdose prevention Relevant Orders Chlamydia/N. Gonorrhoeae RNA, TMA, Urogenitial POCT SAMANTHA-14 Urine Drug Screen (Completed) Hypertension - patient states he takes an antihypertensive which he does not know its name - continue monitoring BP and taking medication - continue lifestyle modification - schedule an urgent follow up with PCP documented in this encounter Miscellaneous Notes * Assessment & Plan Note - Samreen Casarez MD - 09/11/2024 10:14 AM EDTAssociated Problem(s): Hypertension - patient states he takes an antihypertensive which he does not know its name - continue monitoring BP and taking medication - continue lifestyle modification - schedule an urgent follow up with PCP * Assessment & Plan Note - Samreen Casarez MD - 09/11/2024 5:03 AM EDTAssociated Problem(s): Opioid use disorder in remission - stage of change: preparation / action - Utox review: pos bup and antonio since induction on 08/21/24 - Overdose risk: high risk. Hx overdose; decreased tolerance; uses alone; mixed use - Assess need for recovery support at next visit - Continue current recovery effort - Reviewed harm reduction and overdose prevention documented in this encounter Plan of Treatment Upcoming Encounters Date Type Department Care Team (Late st Contact Info) Description 09/18/2024 9:45 AM EDT Clinical Support [facility] [address] [place] [address] Jimmy Davila, DIANA [address] [place] [address] Scheduled Orders Name Type Priority Associated Diagnoses Orde r Schedule Chlamydia/N. Gonorrhoeae RNA, TMA, Urogenitial Microbiology Routine Opioid use disorder in remission Ordered: 09/11/2024 documented as of this encounter Goals Goal Patient Goal Type Associated Problems Recent Progress Patient-Stated? Author Increase coping skills to promote long-term recovery and improve ability to perform daily activities General No Jimmy Davila, DIANA Take your medication every day Lifestyle No Jimmy Davila, DIANA documented as of this encounter Procedures Procedure Name Priority Date/Time Associated Diagnosis Comments POCT SAMANTHA-14 URINE DRUG SCREEN Routine 09/11/2024 9:50 AM EDT Opioid use disorder in remission documented in this encounter Results * POCT SAMANTHA-14 Urine Drug Screen (09/11/2024 9:50 AM EDT) THC Negative Cocaine Screen, Urine Positive Opiate [...] CARE TEST ENTER/EDIT OR DERABLES Final Result documented in this encounter Visit Diagnoses Diagnosis Opioid use disorder in remission- Primary Hypertension, unspecified type documented in this encounter Additional Health Concerns Assessment Noted Time PHQ-9 Depression Total Score: 0 09/12/19 24 2:05 PM EDT documented as of this encounter Care Teams Flight Reservations Manager Relationship Specialty Start Date End Date Garth Snider MD [address] [place] [id number] PCP - General Internal Medicine 10/02/23 documented as of this encounter
--- OUTSIDE RECORDS SUMMARY | 2024-09-11 11:41 | XMS_ITS | Encounter Summary ---
Author Organization [employer] Address [address] [place] [address] Care Team Providers Care Wastewater Plant Operator Name Role Phone Garth Snider MD Primary Care Provider Encounter Details Date Type Department Care Team (Late st Contact Info) Description 02/29/2024 Orders Only [facility] [address] [place] [address] Frank Khan MD [address] [place] [address] Social History Tobacco Use Types Packs/Day Years [...] Description 09/18/2024 9:45 AM EDT Clinical Support [facility] [address] [place] [address] Jimmy Davila, RN [address] [place] [address] documented as of this encounter Visit Diagnoses Not on filedocumented in this encounter Additional Health Concerns Assessment Noted Time PHQ-9 Depression Total Score: 0 09/12/19 24 2:05 PM EDT documented as of this encounter Care Teams Wastewater Plant Operator Relationship Specialty Start Date End Date Garth Snider MD [address] [place] [phone] PCP - General Internal Medicine 10/02/23 documented as of this encounter
--- OUTSIDE RECORDS SUMMARY | 2024-09-11 11:41 | XMS_ITS | Encounter Summary ---
Author Organization [employer] Address [address] [place] [address] Care Team Providers Care Piano Technician Name Role Phone Garth Snider MD Primary Care Provider [phone] Reason for Visit * Reason Onset Date Comments Referral 03/20/2024 Encounter Details Date Type Department Care Team ([facility] st Contact Info) Description 03/20/2024 Telephone [facility] [address] [place] [address] Garth Snider MD [address] [place], [place] [phone] Referral Social History Tobacco Use Types Packs/Day Years [...] encounter Miscellaneous Notes * Telephone Encounter - Olga Lidia Byrd - 03/20/2024 10:01 AM EST Tc from [facility] ([facility]) requesting a new referral due to them only doing MRA with out contrast, caller notifies they don't do MRA with contrast. [facility] ([facility]) [phone] documented in this encounter Plan of Treatment Upcoming Encounters Date Type Department Care Team (Late st Contact Info) Description 09/18/2024 9:45 AM EDT Clinical Support [facility] [address] [place] [address] Jimmy Davila, RN [address] [place] [address] documented as of this encounter Visit Diagnoses Not on filedocumented in this encounter Additional Health Concerns Assessment Noted Time PHQ-9 Depression Total Score: 0 09/12/19 2:05 PM EDT documented as of this encounter Care Teams Piano Technician Relationship Specialty Start Date End Date Garth Snider MD [address] [place] [address] PCP - General Internal Medicine 10/02/23 documented as of this encounter
--- OUTSIDE RECORDS SUMMARY | 2024-09-11 11:41 | XMS_ITS | Encounter Summary ---
Demographics Address [address] [place] [address] [place] [address] Mobile Phone Home Phone Email Address Preferred Language en Marital Status Single Adventist Affiliation Unknown Race Other Race Ethnic Group Unknown Author Organization [employer] Address [address] [place] [address] Care Team Providers Care Medical Billing And Coding Instructor Name Role Phone Garth Snider MD Primary Care Provider Encounter Details Date Type Department Care Team (Late st Contact Info) Description 02/28/2024 Orders Only [facility] [address] [place], [place] [phone] Garth Snider MD [address] [place] [address] Erectile disorder (Primary Dx) Social History Tobacco Use Types [...] Description 09/18/2024 9:45 AM EDT Clinical Support [facility] [address] [place] [address] Jimmy Davila RN [address] [place] [address] Scheduled Orders Name Type Priority Associated Diagnoses Orde r Schedule [facility] Lab Routine Erectile disorder Expected: 02/28/2024 (Approximate), Expires: 02/27/2025 documented as of this encounter Procedures Procedure Name Priority Date/Time Associated Diagnosis Comments TSH W/REFLEX TO FT4 Routine 03/08/2024 1 2:34 PM EST Erectile disorder TESTOSTERONE, TOTAL, MALES (ADULT), [place] Routine 03/08/2024 12:34 PM EST Erectile disorder documented in this encounter Results * TSH W/Reflex to FT4 (03/08/2024 12:34 PM EST) TSH reflex Free T4 0.71 0.32 - 4.0 uIU/mL [facility] Blood Venous blood specimen / Unknown 03/08/2024 12:34 PM EST 03/08/2024 2:04 PM EST us Garth Snider MD LAB BLOOD ORDERABLES Final Result [facility] [address] [place] [address] [phone] * Testosterone, Total, males (Adult), [place] (03/08/2024 12:34 PM EST) Testosterone, Total 325 250 - 1100 ng/dL [facility] Comment:For additional infor annearia, please refer tohttp://education.[employer]/faq/YvefnAjjoyphxvczrVQQJNLNVG678(This link is being provided for informational/educational purposes only.)This test was developed and its analytical performancecharacteristics have been determined by [employer] [place], [place]. It hasnot been cleared or approved by the U.S. Food and DrugAdministration. This assay has been validated pursuantto the CLIA regulations and is used for clinicalpurposes.THIS TEST WAS PERFORMED AT:[id number] [place] [address]TENTKHRJUAN MANUEL RANDOLPH MD,PHD Blood Venous blood specimen / Unknown 03/08/2024 12:34 PM EST 03/08/2024 2:04 PM EST Garth Snider MD LAB BLOOD ORDERABLES Final Result [facility] [address] [place] [address] [phone] documented in this encounter Visit Diagnoses Diagnosis Erectile disorder- Primary documented in this encounter Additional Health Concerns Assessment Noted Time PHQ-9 Depression Total Score: 0 09/12/19 24 2:05 PM EDT documented as of this encounter Care Teams Medical Billing And Coding Instructor Relationship Specialty Start Date End Date Garth Snider MD [address] [place] [phone] PCP - General Internal Medicine 10/02/23 documented as of this encounter
[2024-09-11 12:07] LABS: Syphilis Screen Nonreactive (Nonreactive)
[2024-09-11 12:37] LABS: CT PCR NOT DETECTED (Not Detect.); NG PCR NOT DETECTED (Not Detect.)
[2024-09-12 04:33] LABS: HBsAGNum1 0.33 S/CO (0.00-0.99); HIV AB/AG Nonreactive (Nonreactive); HIV Num 1 0.05 S/CO (0.00-0.99); Hepatitis B Surface Antigen Negative (Negative); ~HepC Num1 0.21 S/CO (0.00-0.79); ~Hepatitis C Antibody Nonreactive (Nonreactive)
== END 2024-09-11 10:10 | disposition home or self-care (01) ==
LOC: HO.HHCL 10:09
PROVIDERS: Visit Provider Family Medicine
DX: F11.91 Opioid use, unspecified, in remission (principal); Z11.3 Encounter for screening for infections with a predominantly sexual mode of transmission; Z11.59 Encounter for screening for other viral diseases; Z11.4 Encounter for screening for human immunodeficiency virus [HIV]
CPT/HCPCS: 36415; 80076; 86780; 86803; 87340; 87389; 87491; 87591

== ENCOUNTER 2024-11-11 09:30 | Outpatient (REF) | payer OTHER, SELFPAY ==
--- OUTSIDE RECORDS SUMMARY | 2024-11-11 10:01 | XMS_ITS | Encounter Summary ---
Author Organization [facility] Address [address] [place] [address] Care Team Providers Care Nurse Case Management Name Role Phone Filemon Tate MD Primary Care Provider [phone] Encounter Details Date Type Department Care Team (Late st Contact Info) Description 07/01/2016 Scanned Document [facility] [address] [place] [address] [place] [phone] Ajith Donovan MD [address] [facility] [address] [place] [address] Social History Tobacco Use Types Packs/Day Years [...] on filedocumented in this encounter Care Teams Nurse Case Management Relationship Specialty Start Date End Date Filemon Tate MD [address] [place] [address] PCP - General Family Medicine 05/06/16 documented as of this encounter
--- OUTSIDE RECORDS SUMMARY | 2024-11-11 10:01 | XMS_ITS | Encounter Summary ---
Demographics Address [address] [place] [address] Mobile Phone Home Phone Email Address Preferred Language en Marital Status Single Taoist Affiliation Unknown Race Other Race Ethnic Group Unknown Author Organization [employer] Address [address] [place] [address] Care Team Providers Care Taxation Inspector Name Role Phone Garth Snider MD Primary Care Provider Encounter Details Date Type Department Care Team (Late st Contact Info) Description 05/17/2024 Orders Only [facility] [address] [place], [place] [phone] Garth Snider MD [address] [place] [address] Social History Tobacco Use Types Packs/Day Years Used Date Smoking Tobacco: Every Day Cigarettes 0.3 35.6 Started: 1991 Smokeless Tobacco: Never Comments:Pt is [...] Care Team (Late st Contact Info) Description 11/11/2024 10:15 AM EDT Clinical Support [facility] [address] [place] [address] Arrived 11/13/2024 10:00 AM EDT Office Visit [facility] [address] [place] [phone] Samreen Casarez MD [address] [place] [phone] 11/27/2024 11:15 AM EDT Clinical Support [address] [address] Jimmy Davila, DIANA [address] [place] [address] documented as of this encounter Visit Diagnoses Not on filedocumented in this encounter Additional Health Concerns Assessment Noted Time PHQ-9 Depression Total Score: 0 09/12/19 2:05 PM EDT documented as of this encounter Care Teams Taxation Inspector Relationship Specialty Start Date End Date Garth Snider MD [address] [place] [address] PCP - General Internal Medicine 10/02/23 documented as of this encounter
[2024-11-11 14:27] LABS: Anion Gap 13 (12-20); Blood Urea Nitrogen 20 mg/dL (9-16); Calcium 8.8 mg/dL (8.4-10.2); Carbon Dioxide 24 mmol/L (22-29); Chloride 107 mmol/L (96-108); Cholesterol 120 mg/dL (<200); Estimated Glomerular Filt Rate > 60; HDL Cholesterol 48 mg/dL (>40); Potassium 3.2 mmol/L (3.3-5.1); Sodium 141 mmol/L (135-145); Triglycerides 194 mg/dL (<150)
== END 2024-11-11 09:31 | disposition home or self-care (01) ==
LOC: HO.CHCLDS 09:30
PROVIDERS: Visit Provider Internal Medicine
DX: I10 Essential (primary) hypertension (principal); E78.00 Pure hypercholesterolemia, unspecified
CPT/HCPCS: 36415; 80048; 80061